=== PATIENT | female | born 1960 | race Caucasian/White ===

== ENCOUNTER 2019-04-30 09:09 | Emergency (ER) | payer MEDICARE ==
[2019-04-30] MEDS ORDERED: DUONEB 0.5-3 MG/3 ml Neb IH ONE ×2 (09:20→09:30)
[2019-04-30] MEDS ORDERED: Sodium Chloride 0.9% 1000 ML 1,000 ML ONE (09:26)
[2019-04-30] MEDS ORDERED: Sodium Chloride 0.9% 1000 ML 1,000 ML IV SCH (09:30)
--- NOTE | 2019-04-30 09:54 | ERPHSYRPT ---
- History of Present Illness Time Seen by Provider: 04/30/19 09:52 Source: patient Exam Limitations: no limitations Patient Subjective Stated Complaint: increasing sob over the past three days. hx smoking for "years" at 1/2 ppd. also had fever at home and took tylenol this am. increased coughing. Triage Nursing Assessment: to room per w/c. skin w/d, color normal, resp labored, shallow. breath sounds diminished throughout. occasional dry cough noted. oxygen on patient at 2L. Physician History: 58 years old female came to ER with increasing sob over the past three days. hx smoking for "years" at 1/2 ppd. also had fever at home and took tylenol this am. increased coughing. Timing/Duration: day(s) (3-4 days) Activities at Onset: activity Severity of Dyspnea-Max: moderate Severity of Dyspnea-Current: moderate Possible Cause: frequent episodes Modifying Factors: Improves With: activity Associated Symptoms: fever International travel in last 2 weeks: No Allergies/Adverse Reactions: morphine Allergy (Verified 04/30/19 09:25) Penicillins Allergy (Verified 04/30/19 09:25) Home Medications: Albuterol Common Canister [Proventil Common Canister] 2 puffs IH UD [History] Budesonide/Formoterol Fumarate [Symbicort 80-4.5 Mcg Inhaler] 1 puff IH DAILY [History] Levothyroxine Sodium 50 Mcg [Synthroid 50 Mcg] 50 mcg PO DAILY 04/30/19 [ History] Pregabalin 200 mg PO BID 04/30/19 [History] Tizanidine HCl 4 mg PO UD 04/30/19 [History] Tramadol HCl 50 mg [Ultram 50 mg] 50 mg PO UD 04/30/19 [History] Hx Tetanus, Diphtheria Vaccination/Date Given: No Hx Influenza Vaccination/Date Given: No Hx Pneumococcal Vaccination/Date Given: No - Review of Systems Constitutional: Fever, Chills, Fatigue, Weakness Eyes: No Symptoms Ears, Nose, & Throat: No Symptoms Respiratory: Cough, Dyspnea, Dyspnea on Exertion (HARRELL), Wheezing Cardiac: No Chest Pain, No Edema, No Syncope Abdominal/Gastrointestinal: No Abdominal Pain, No Nausea, No Vomiting, No Diarrhea Genitourinary Symptoms: No Dysuria Musculoskeletal: No Back Pain, No Neck Pain Skin: No Rash Neurological: No Dizziness, No Focal Weakness, No Sensory Changes Psychological: No Symptoms Endocrine: No Symptoms All Other Systems: Reviewed and Negative - Past Medical History Pertinent Past Medical History: Yes Neurological History: Peripheral Neuropathy Cardiac History: No Pertinent History Respiratory History: COPD Endocrine Medical History: Hypothyroidism Musculoskeletal History: Osteoarthritis Other Medical History: BILATERAL HIP REPLACEMENTS AT AGE 45 (SIX MONTH APART). BACK SURGERY "SCRAPED ARTHRITIS" DUE TO PROBLEMS WITH BOWEL/BLADDER CONTROL APPROXIMATELY 2010 - Past Surgical History Past Surgical History: Yes Musculoskeletal: Orthopedic Surgery - Social History Smoking Status: Current every day smoker How long have you smoked: YEARS Exposure to second hand smoke: Yes Drug Use: marijuana Patient Lives Alone: No - Nursing Vital Signs Nursing Vital Signs: Initial Vital Signs Temperature 97.8 F 04/30/19 09:10 Pulse Rate 90 04/30/19 09:10 Respiratory Rate 26 H 04/30/19 09:10 Blood Pressure 158/93 04/30/19 09:10 O2 Sat by Pulse Oximetry 89 L 04/30/19 09:10 Pain Scale Pain Intensity 0 - Physical Exam General Appearance: moderate distress, alert, lethargy Eye Exam: PERRL/EOMI Neck Exam: normal inspection, supple Respiratory Exam: diminished breath sounds, wheezing Cardiovascular/Chest Exam: normal heart sounds, regular rate/rhythm Abdominal/Gastrointestinal Exam: soft, No tenderness, No distention, No mass Extremity Exam: non-tender, normal range of motion, normal inspection, no calf tenderness, no pedal edema Neurologic Exam: alert, oriented x 3, cooperative, leadership recruiter II-XII nml as tested, sensation nml, No motor deficits Skin Exam: normal color, warm, No dry SpO2 Interpretation: borderline oxygenation SpO2: 89 O2 Delivery: Room Air - Course Nursing assessment & vital signs reviewed: Yes - Radiology Exams Chest X-ray Interpretation: Reviewed by me, Infiltrates (right lower lobe) Ordered Tests: Active Orders 24 hr Category Date Time Status CO2 Monitoring STAT Care 04/30/19 09:20 Active Associate Professor Of Biology STAT Care 04/30/19 09:21 Active EKG-ER Only STAT Care 04/30/19 09:20 Active IV Insertion STAT Care 04/30/19 09:20 Active Oxygen-ED Only Nasal Cannula 3 lpm Care 04/30/19 09:20 Active CHEST 1 VIEW (PORTABLE) Stat Exams 04/30/19 09:35 Taken BLOOD CULTURE Stat Lab 04/30/19 09:48 Received CBC W DIFF Stat Lab 04/30/19 09:20 Completed CMP Stat Lab 04/30/19 09:20 Completed D-DIMER QUANTITATION Stat Lab 04/30/19 09:20 Completed Lactic Acid Stat Lab 04/30/19 09:45 Completed MAGNESIUM Stat Lab 04/30/19 09:20 Completed NT PRO BNP Stat Lab 04/30/19 09:20 Completed TROPONIN Q3H Lab 04/30/19 09:30 Completed TROPONIN Q3H Lab 04/30/19 12:30 Ordered TROPONIN Q3H Lab 04/30/19 15:30 Ordered TROPONIN Q3H Lab 04/30/19 18:30 Ordered TROPONIN Q3H Lab 04/30/19 21:30 Ordered UA W/RFX UR CULTURE Stat Lab 04/30/19 09:20 Uncollected Peak Expiratory Flow Rate DAILY RT 04/30/19 07:00 Active Respiratory Therapy Assessment DAILY RT 05/01/19 07:00 Active Medication Summary Generic Name Dose Route Start Last Admin Trade Name Freq PRN Reason Stop Dose Admin Sodium Chloride 1,000 mls @ 50 mls/hr 04/30/19 09:30 04/30/19 09:27 Sodium Chloride 0.9% 1000 Ml IV 05/30/19 09:29 50 mls/hr .Q20H FELIPA Administration Discontinued Medications Generic Name Dose Route Start Last Admin Trade Name Freq PRN Reason Stop Dose Admin Albuterol/Ipratropium 3 ml 04/30/19 09:20 04/30/19 09:33 Duoneb 0.5-3 Mg/3 Ml Neb IH 04/30/19 09:21 3 ml STAT ONE Administration Albuterol/Ipratropium Confirm 04/30/19 09:30 Duoneb 0.5-3 Mg/3 Ml Neb Administered 04/30/19 09:31 Dose 3 ml IH .STK-MED ONE Levofloxacin/Dextrose 500 mg in 100 mls @ 100 mls/hr 04/30/19 10:50 04/30/19 10:57 Levofloxacin 500mg/100ml D5w IV 04/30/19 11:49 100 ml/hr STAT STA 100 mls/hr Administration Levofloxacin/Dextrose Confirm 04/30/19 10:55 Levofloxacin 500mg/100ml D5w Administered 04/30/19 10:56 Dose 500 mg in 100 mls @ ud IV .STK-MED ONE Nicotine 21 mg 04/30/19 11:23 04/30/19 11:35 Nicoderm Cq 21 Mg TOP 04/30/19 11:24 21 mg STAT ONE Administration Lab/Rad Data: Laboratory Result Diagrams 04/30/19 09:20 04/30/19 09:20 Laboratory Results 04/30/19 04/30/19 04/30/19 Range/Units 09:50 09:45 09:30 WBC (4.0-10.5) K/mm3 RBC (4.1-5.4) M/mm3 Hgb (12.0-16.0) gm/dl Hct (35-47) % MCV (78-100) fl MCH (26-32) pg MCHC (32-36) g/dl RDW (11.5-14.0) % Plt Count (150-450) K/mm3 MPV (6-9.5) fl Gran % (36.0-66.0) % Eos # (Auto) (0-0.5) Absolute Lymphs (auto) (1.0-4.6) Absolute Monos (auto) (0.0-1.3) Lymphocytes % (24.0-44.0) % Monocytes % (0.0-12.0) % Eosinophils % (0.00-5.0) % Basophils % (0.0-0.4) % Absolute Granulocytes (1.4-6.9) Basophils # (0-0.4) D-Dimer (215-500) ng/mL Sodium (137-145) mmol/L Potassium (3.5-5.1) mmol/L Chloride (98-107) mmol/L Carbon Dioxide (22-30) mmol/L Anion Gap (5-15) MEQ/L BUN (7-17) mg/dL Creatinine (0.52-1.04) mg/dL Estimated GFR ML/MIN Glucose (74-106) mg/dL Lactic Acid 1.0 (0.4-2.0) Calcium (8.4-10.2) mg/dL Magnesium (1.6-2.3) mg/dL Total Bilirubin (0.2-1.3) mg/dL AST (14-36) U/L ALT (0-35) U/L Alkaline Phosphatase (38-126) U/L Troponin I < 0.012 (0.000-0.034) ng/mL NT-Pro-B Natriuret Pep (0-900) pg/mL Serum Total Protein (6.3-8.2) g/dL Albumin (3.5-5.0) g/dL Influenza Type A Ag NEGATIVE (NEGATIVE) Influenza Type B Ag NEGATIVE (NEGATIVE) RSV (PCR) NEGATIVE (Negative) 04/30/19 04/30/19 04/30/19 Range/Units 09:20 09:20 09:20 WBC 6.6 (4.0-10.5) K/mm3 RBC 5.20 (4.1-5.4) M/mm3 Hgb 16.9 H (12.0-16.0) gm/dl Hct 51.0 H (35-47) % MCV 98.1 (78-100) fl MCH 32.5 H (26-32) pg MCHC 33.1 (32-36) g/dl RDW 13.2 (11.5-14.0) % Plt Count 141 L (150-450) K/mm3 MPV 11.6 H (6-9.5) fl Gran % 53.5 (36.0-66.0) % Eos # (Auto) 0.04 (0-0.5) Absolute Lymphs (auto) 1.84 (1.0-4.6) Absolute Monos (auto) 1.17 (0.0-1.3) Lymphocytes % 27.9 (24.0-44.0) % Monocytes % 17.7 H (0.0-12.0) % Eosinophils % 0.6 (0.00-5.0) % Basophils % 0.3 (0.0-0.4) % Absolute Granulocytes 3.53 (1.4-6.9) Basophils # 0.02 (0-0.4) D-Dimer 650 H* (215-500) ng/mL Sodium 145 (137-145) mmol/L Potassium 4.1 (3.5-5.1) mmol/L Chloride 103 (98-107) mmol/L Carbon Dioxide 30 (22-30) mmol/L Anion Gap 16.4 H (5-15) MEQ/L BUN 11 (7-17) mg/dL Creatinine 0.53 (0.52-1.04) mg/dL Estimated GFR > 60.0 ML/MIN Glucose 124 H (74-106) mg/dL Lactic Acid (0.4-2.0) Calcium 9.8 (8.4-10.2) mg/dL Magnesium 2.1 (1.6-2.3) mg/dL Total Bilirubin 0.40 (0.2-1.3) mg/dL AST 45 H (14-36) U/L ALT 14 (0-35) U/L Alkaline Phosphatase 88 (38-126) U/L Troponin I (0.000-0.034) ng/mL NT-Pro-B Natriuret Pep 67.8 (0-900) pg/mL Serum Total Protein 8.6 H (6.3-8.2) g/dL Albumin 4.7 (3.5-5.0) g/dL Influenza Type A Ag (NEGATIVE) Influenza Type B Ag (NEGATIVE) RSV (PCR) (Negative) - Progress Progress: improved Air Movement: good Blood Culture(s) Obtained: Yes Antibiotics given: Yes Counseled pt/family regarding: lab results, diagnosis, need for follow-up, rad results - Departure Departure Disposition: Home Clinical Impression: Pneumonia of right lower lobe due to infectious organism, Tobacco abuse counseling, Tobacco dependence, Chronic bronchitis with acute exacerbation Condition: Stable Critical Care Time: Yes Critical Care Time(excluding separately billable procedures): Critical 30-74 mins Referrals: DAYSI KINSEY MD [Primary Care Provider] - Instructions: Pneumonia, Adult (DC), Exacerbation of COPD (DC), Chronic Obstructive Pulmonary Disease, Shortness of Breath (Dyspnea) (DC), Quitting Smoking for Older Adults, Smoking: Not Just Harmful to Your Lungs and Heart, Quitting Smoking, Drugs to Help You Stop Using Tobacco Additional Instructions: Discharge/Care Plan LINDY FERRARO was seen on 04/30/19 in the Emergency Room. The patient was counseled regarding Diagnosis,Lab results, Imaging studies, need for follow up and when to return to the Emergency Room. Prescriptions given: Discharge Note I have spoken with the patient and/or caregivers. I have explained the patient' s condition, diagnosis and treatment plan based on the information available to me at this time. I have answered the patient's and/or caregiver's questions and addressed any concerns. The patient and/or caregivers have as good understanding of the patient's diagnosis, condition and treatment plan as can be expected at this point. The vital signs have been stable. The patient's condition is stable and appropriate for discharge from the emergency department. The patient will pursue further outpatient evaluation with the primary care physician or other designated or consulting physician as outlined in the discharge instructions. The patient and/or caregivers are agreeable to this plan of care and follow-up instructions have been explained in detail. The patient and/or caregivers have received these instruction. The patient/and or caregivers are aware that any significant change in condition or worsening of symptoms should prompt an immediate return to this or the closest emergency department or call 911. Prescriptions: Levofloxacin [Levaquin 500 MG Tablet] 500 mg PO QAM #7 tablet
[2019-04-30 10:05] LABS: Absolute Neutrophil Ct (ANC) 3.53 (1.4-6.9); BASOPHIL % 0.3 % (0.0-0.4); Basophil (Absolute #) 0.02 (0-0.4); Eosinophil % 0.6 % (0.00-5.0); Eosinophil (Absolute #) 0.04 (0-0.5); Hemoglobin 16.9 gm/dl (12.0-16.0); Lymphocyte (Absolute #) 1.84 (1.0-4.6); Lymphocytes % 27.9 % (24.0-44.0); Mean Cell Volume 98.1 fl (78-100); Mean Corpuscular Hemoglobin 32.5 pg (26-32); Mean Corpuscular Hgb Concent. 33.1 g/dl (32-36); Mean Platelet Volume 11.6 fl (6-9.5); Monocyte (Absolute #) 1.17 (0.0-1.3); Monocytes % 17.7 % (0.0-12.0); Neutrophil % 53.5 % (36.0-66.0); Platelet Count 141 K/mm3 (150-450); Red Cell Distribution Width 13.2 % (11.5-14.0); White Blood Count 6.6 K/mm3 (4.0-10.5)
[2019-04-30 10:18] LABS: ALBUMIN 4.7 g/dL (3.5-5.0); ALKALINE PHOSPHATASE 88 U/L (38-126); ANION GAP 16.4 MEQ/L (5-15); BLOOD UREA NITROGEN 11 mg/dL (7-17); CHLORIDE 103 mmol/L (98-107); Calcium 9.8 mg/dL (8.4-10.2); Carbon Dioxide 30 mmol/L (22-30); Creatinine 1 0.53 mg/dL (0.52-1.04); Glucose 124 mg/dL (74-106); MAGNESIUM 2.1 mg/dL (1.6-2.3); NT PRO BNP 67.8 pg/mL (0-900); Potassium 4.1 mmol/L (3.5-5.1); SGOT/AST 45 U/L (14-36); SGPT/ALT 14 U/L (0-35); SODIUM 145 mmol/L (137-145); Total Protein 8.6 g/dL (6.3-8.2)
[2019-04-30] MEDS ORDERED: Levofloxacin 500MG/100ML D5W 500 MG/100 ML BAG IV STA (10:50)
[2019-04-30 10:53] LABS: INFLUENZA A NEGATIVE (NEGATIVE); INFLUENZA B NEGATIVE (NEGATIVE); RESPIRATORY SYNCTIAL VIRUS NEGATIVE (Negative)
[2019-04-30] MEDS ORDERED: Levofloxacin 500MG/100ML D5W 500 MG/100 ML BAG IV ONE (10:55)
[2019-04-30] MEDS ORDERED: Nicoderm CQ 21 MG TOP ONE (11:23)
[2019-04-30 12:18] VITALS: BP 123/97; PULSE 90; O2SAT 93
[2019-04-30 13:00] LABS: Appearance SLIGHTLY CLOUDY (CLEAR); Bilirubin NEGATIVE (NEGATIVE); Blood NEGATIVE Ery/ul (0-5); Glucose NEGATIVE (NEGATIVE); Ketones TRACE (NEGATIVE); Leukocyte Esterase NEGATIVE (NEGATIVE); Mucus SLIGHT /HPF (NEGATIVE); Nitrite NEGATIVE (NEGATIVE); Protein,Urine Dip 30 (Negative); Specific Gravity 1.018 (1.005-1.025); Urobilinogen NEGATIVE mg/dL (0-1); WBC 0-2 /HPF (0-5)
--- NOTE | 2019-04-30 20:42 | XRAY ---
Indication: Fever, cough, and short of breath. Comparison: None Portable chest hyperinflated with subtle right base infiltrate/atelectasis. Remaining heart and lungs unremarkable. Bony thorax intact with mild degenerative changes. Impression: Right base infiltrate/atelectasis. Correlate clinically.
== END 2019-04-30 12:19 | disposition home or self-care (01) ==
LOC: ED 09:09
DX: J18.1 Lobar pneumonia, unspecified organism (principal); F17.200 Nicotine dependence, unspecified, uncomplicated; J44.1 Chronic obstructive pulmonary disease with (acute) exacerbation; G62.9 Polyneuropathy, unspecified; E03.9 Hypothyroidism, unspecified; M19.90 Unspecified osteoarthritis, unspecified site
CPT/HCPCS: 36000; 36415; 71045; 80053; 81001; 83605; 83735; 83880; 84484; 85025; 85379; 87040; 87631; 93005; 93041; 94150; 94640; 96360; 96361; 96365; 99285; 99291; J1956; A9270-GY

== ENCOUNTER 2019-05-05 21:12 | Inpatient (IN) | payer MEDICARE ==
[2019-05-05] MEDS ORDERED: DUONEB 0.5-3 MG/3 ml Neb IH ONE ×2 (21:41→22:01)
[2019-05-05] MEDS ORDERED: Rocephin 1000 MG INJ IM ONE (21:44)
[2019-05-05] MEDS ORDERED: PULMICORT 0.5 MG/2 ML RESPULES IH ONE ×2 (21:44→21:58)
[2019-05-05] MEDS ORDERED: Rocephin 1000 MG INJ ONE (21:48)
[2019-05-05] MEDS ORDERED: XYLOCAINE 1% HCL 20 ML MDV ONE (21:49)
--- NOTE | 2019-05-05 21:53 | ERPHSYRPT ---
- History of Present Illness Time Seen by Provider: 05/05/19 21:49 Source: patient, family Exam Limitations: no limitations Patient Subjective Stated Complaint: pt states, "ever since taking the Levaquin antibiotic last Wednesday, I'm having terrible pain down my legs, calves and into my heels". Triage Nursing Assessment: pt ambulated to rm 8, alert and oriented x4, cooperative, daughter at bedside. Pt c/o bilat posterior leg pain after starting Levaquin for pneumonia. Lung field diminished throughout with exp wheezes to ant left upper lobe. Heart tones reg, abd soft with active bs x4 quad, nontender. Physician History: pt states, "ever since taking the Levaquin antibiotic last Wednesday, I'm having terrible pain down my legs, calves and into my heels". patient was diagnosed with pneumonia last wednesday was seen in ER and started levaquin. Since last 3 days she has both leg calf and tendon pain. Timing/Duration: day(s) Allergies/Adverse Reactions: levofloxacin [From Levaquin] Allergy (Verified 05/05/19 21:48) morphine Allergy (Verified 04/30/19 09:25) Penicillins Allergy (Verified 04/30/19 09:25) varenicline [From Chantix] Adverse Reaction (Verified 05/05/19 21:48) Home Medications: Albuterol Common Canister [Proventil Common Canister] 2 puffs IH UD PRN [History] Budesonide/Formoterol Fumarate [Symbicort 80-4.5 Mcg Inhaler] 1 puff IH DAILY PRN 04/30/19 [History] Levothyroxine Sodium 50 Mcg [Synthroid 50 Mcg] 50 mcg PO DAILY 04/30/19 [ History] Pregabalin 200 mg PO BID 04/30/19 [History] Tizanidine HCl 4 mg PO [id number] PRN 04/30/19 [History] Tramadol HCl 50 mg [Ultram 50 mg] 50 mg PO BID 04/30/19 [History] Hx Tetanus, Diphtheria Vaccination/Date Given: Yes Hx Influenza Vaccination/Date Given: No Hx Pneumococcal Vaccination/Date Given: No Immunizations Up to Date: Yes - Review of Systems Constitutional: No Fever, No Chills Eyes: No Symptoms Ears, Nose, & Throat: No Symptoms Respiratory: No Cough, No Dyspnea Cardiac: No Chest Pain, No Edema, No Syncope Abdominal/Gastrointestinal: No Abdominal Pain, No Nausea, No Vomiting, No Diarrhea Genitourinary Symptoms: No Dysuria Musculoskeletal: Arthralgias, Joint Pain, Myalgias, No Back Pain, No Neck Pain, No Deformity Skin: No Rash Neurological: No Dizziness, No Focal Weakness, No Sensory Changes Psychological: No Symptoms Endocrine: No Symptoms All Other Systems: Reviewed and Negative - Past Medical History Pertinent Past Medical History: Yes Neurological History: Peripheral Neuropathy ENT History: No Pertinent History Cardiac History: No Pertinent History Respiratory History: COPD Endocrine Medical History: Hypothyroidism Musculoskeletal History: Osteoarthritis GI Medical History: No Pertinent History History: No Pertinent History Psycho-Social History: Depression Female Reproductive Disorders: No Pertinent History Other Medical History: BILATERAL HIP REPLACEMENTS AT AGE 45 (SIX MONTH APART). BACK SURGERY "SCRAPED ARTHRITIS" DUE TO PROBLEMS WITH BOWEL/BLADDER CONTROL APPROXIMATELY 2010 - Past Surgical History Past Surgical History: Yes Neuro Surgical History: No Pertinent History Cardiac: No Pertinent History Respiratory: No Pertinent History Gastrointestinal: No Pertinent History Genitourinary: No Pertinent History Musculoskeletal: Orthopedic Surgery Female Surgical History: No Pertinent History - Social History Smoking Status: Current every day smoker How long have you smoked: 40 yrs Exposure to second hand smoke: Yes Drug Use: marijuana Patient Lives Alone: No - Female History Hx Now: No - Nursing Vital Signs Nursing Vital Signs: Initial Vital Signs Temperature 98.6 F 05/05/19 21:31 Pulse Rate 82 05/05/19 21:31 Respiratory Rate 17 05/05/19 21:31 Blood Pressure 101/59 05/05/19 21:31 O2 Sat by Pulse Oximetry 85 L 05/05/19 21:31 Pain Scale Pain Intensity 6 - Physical Exam General Appearance: no apparent distress, alert Eye Exam: PERRL/EOMI Neck Exam: normal inspection, supple Respiratory Exam: diminished breath sounds, wheezing Cardiovascular/Chest Exam: normal heart sounds, regular rate/rhythm Abdominal/Gastrointestinal Exam: soft, No tenderness, No distention, No mass Extremity Exam: non-tender, normal range of motion, normal inspection, no calf tenderness, no pedal edema Neurologic Exam: alert, oriented x 3, cooperative, 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, sensation nml, No motor deficits Skin Exam: normal color, warm, No dry SpO2 Interpretation: borderline oxygenation SpO2: 91 O2 Delivery: Room Air - Course Nursing assessment & vital signs reviewed: Yes Ordered Tests: Active Orders 24 hr Category Date Time Status Peak Expiratory Flow Rate ONCE RT 05/05/19 22:08 Active Respiratory Therapy Assessment DAILY RT 05/05/19 22:08 Active Medication Summary Discontinued Medications Generic Name Dose Route Start Last Admin Trade Name Freq PRN Reason Stop Dose Admin Albuterol/Ipratropium 3 ml 05/05/19 21:41 05/05/19 22:02 Duoneb 0.5-3 Mg/3 Ml Neb IH 05/05/19 21:42 3 ml STAT ONE Administration Albuterol/Ipratropium Confirm 05/05/19 22:01 Duoneb 0.5-3 Mg/3 Ml Neb Administered 05/05/19 22:02 Dose 3 ml IH .STK-MED ONE Budesonide 0.5 mg 05/05/19 21:44 05/05/19 22:03 Pulmicort 0.5 Mg/2 Ml Respules IH 05/05/19 21:45 0.5 mg STAT ONE Administration Ceftriaxone Sodium 1,000 mg 05/05/19 21:44 05/05/19 21:59 Rocephin 1000 Mg Inj IM 05/05/19 21:45 1,000 mg STAT ONE Administration Ceftriaxone Sodium Confirm 05/05/19 21:48 Rocephin 1000 Mg Inj Administered 05/05/19 21:49 Dose 1,000 mg .ROUTE .STK-MED ONE Lidocaine HCl Confirm 05/05/19 21:49 Xylocaine 1% Hcl 20 Ml Mdv Administered 05/05/19 21:50 Dose 3 ml .ROUTE .STK-MED ONE - Progress Progress: improved Air Movement: good Blood Culture(s) Obtained: No Antibiotics given: Yes Discussed with DrCarolyne: Pradeep Will see patient in: hospital (observation) Counseled pt/family regarding: lab results, diagnosis, need for follow-up, rad results - Departure Departure Disposition: Observation Clinical Impression: Pneumonia of right lower lobe due to infectious organism, Drug side effects Condition: Fair Critical Care Time: Yes Critical Care Time(excluding separately billable procedures): Critical 30-74 mins Referrals: DAYSI KINSEY MD [Primary Care Provider] - Instructions: Pneumonia, Adult (DC), Adverse Drug Reactions, Adult (DC) Additional Instructions: Discharge/Care Plan LINDY FERRARO was seen on 05/05/19 in the Emergency Room. The patient was counseled regarding Diagnosis,Lab results, Imaging studies, need for follow up and when to return to the Emergency Room. Prescriptions given: Discharge Note I have spoken with the patient and/or caregivers. I have explained the patient' s condition, diagnosis and treatment plan based on the information available to me at this time. I have answered the patient's and/or caregiver's questions and addressed any concerns. The patient and/or caregivers have as good understanding of the patient's diagnosis, condition and treatment plan as can be expected at this point. The vital signs have been stable. The patient's condition is stable and appropriate for discharge from the emergency department. The patient will pursue further outpatient evaluation with the primary care physician or other designated or consulting physician as outlined in the discharge instructions. The patient and/or caregivers are agreeable to this plan of care and follow-up instructions have been explained in detail. The patient and/or caregivers have received these instruction. The patient/and or caregivers are aware that any significant change in condition or worsening of symptoms should prompt an immediate return to this or the closest emergency department or call 911. LINDY FERRARO was seen on 05/05/19 n the Emergency Room. At that time you were treated for an emergent condition, during your visit Laboratory, Radiology and/or other procedures may have been ordered. It is very important that you follow-up with your Primary Care Physician DAYSI KINSEY within the next 24-48 hours to review your Emergency Room visit and the final results of testing that was ordered. Some test results such as Urine Cultures, Blood Cultures, and other cultures if ordered will not be finalized for 24-48 hours. If you do not have a Primary Care Provider please call the medical records department at [phone] ext [phone] to obtain a copy of your results or you may sign into our patient portal to obtain these results by visiting us @ [email or web address] and completing the following steps: 1. Click on the Patient Portal link 2. Click the Patient Self Enrollment Link to complete the enrollment form and entering your 3. Once the enrollment form is completed you will receive an email with a temporary ID and password at the email address you provided. 4. Next choose a user name and password. Your user name must be at least 4 characters long and your password must be at least 4 characters long. 5. Choose a security question from the list and provide your answer to the question. If you already have signed into the Health Portal you may access your Health Care Information 08/02 by the following steps: 1. Login to our website @ [email or web address] 2. Enter your original user name and password. FAQS The [facility] Health Portal is an online tool that contains your Lab Results, Radiology Reports, Visit History, Discharge Instructions and Health Summary Lab and Radiology Results will not be available for 72 hours on the portal. The Portal is a secure site, passwords are encryted and URLs are re-written so they cannot be copied and pasted. You and authorized family members are the only ones who can access your Portal. Also there is a timeout feature that protects your information if you leave the Portal page open. If you have technical difficulty please use the Contact Us link on the page this will allow you to submit any questions you have regarding the Portal or you may contact the Medical Record Department at [phone]. Prescriptions: Ipratropium/Albuterol Sulfate [Combivent Inhaler] 15 gm IH QID #1 [email or web address] Cephalexin Mh 500 mg [Keflex 500 mg] 500 mg PO Q6H #40 capsule
[2019-05-05] MEDS ORDERED: Sodium Chloride 0.9% 1000 ML 1,000 ML ONE (23:00)
[2019-05-05] MEDS ORDERED: Sodium Chloride 0.9% 1000 ML 1,000 ML IV STA (23:02)
[2019-05-05 23:03] LABS: Hematocrit 46.3 % (35-47); Mean Cell Volume 100.2 fl (78-100); Mean Corpuscular Hemoglobin 32.5 pg (26-32); Mean Corpuscular Hgb Concent. 32.4 g/dl (32-36); Mean Platelet Volume 11.1 fl (6-9.5); Platelet Count 170 K/mm3 (150-450); Red Blood Count 4.62 M/mm3 (4.1-5.4); White Blood Count 5.9 K/mm3 (4.0-10.5)
[2019-05-05 23:15] LABS: ALBUMIN 4.1 g/dL (3.5-5.0); ALKALINE PHOSPHATASE 68 U/L (38-126); ANION GAP 10.8 MEQ/L (5-15); BLOOD UREA NITROGEN 11 mg/dL (7-17); CHLORIDE 97 mmol/L (98-107); Calcium 9.1 mg/dL (8.4-10.2); Carbon Dioxide 38 mmol/L (22-30); Glucose 106 mg/dL (74-106); Potassium 3.8 mmol/L (3.5-5.1); SGOT/AST 31 U/L (14-36); SGPT/ALT 13 U/L (0-35); SODIUM 142 mmol/L (137-145); Total Protein 7.4 g/dL (6.3-8.2)
[2019-05-06 00:11] LABS: ATYPICAL LYMPHS 9 %; BAND 5 % (0.0-2.0); Lymphocytes 25 % (24-44); Monocyte 7 % (0.0-12.0); Neutrophils 54 % (36.0-66.0); Platelet Estimate NORMAL (NORMAL); Total Cells Counted 100
[2019-05-06] MEDS: Sodium Chloride 0.9% 1000 ML 1,000 ML IV SCH ×3 (00:34→23:58)
[2019-05-06] MEDS ORDERED: NORCO 7.5/325 MG TAB PO PRN (00:42)
[2019-05-06] MEDS: Ambien 5 MG Tablet PO PRN ×2 (00:49→21:56)
[2019-05-06] MEDS: DUONEB 0.5-3 MG/3 ml Neb IH SCH ×4 (01:27→19:42)
[2019-05-06 05:43] LABS: Hematocrit 40.7 % (35-47); Hemoglobin 13.3 gm/dl (12.0-16.0); Mean Cell Volume 101.8 fl (78-100); Mean Corpuscular Hgb Concent. 32.7 g/dl (32-36); Mean Platelet Volume 11.1 fl (6-9.5); Platelet Count 144 K/mm3 (150-450); Red Cell Distribution Width 12.9 % (11.5-14.0); White Blood Count 4.6 K/mm3 (4.0-10.5)
[2019-05-06 05:46] LABS: Mean Corpuscular Hemoglobin 33.2 pg (26-32)
[2019-05-06 06:07] LABS: ALBUMIN 3.4 g/dL (3.5-5.0); ALKALINE PHOSPHATASE 73 U/L (38-126); ANION GAP 8.1 MEQ/L (5-15); BLOOD UREA NITROGEN 10 mg/dL (7-17); CHLORIDE 103 mmol/L (98-107); Calcium 8.2 mg/dL (8.4-10.2); Carbon Dioxide 33 mmol/L (22-30); Creatinine 1 0.57 mg/dL (0.52-1.04); Glucose 100 mg/dL (74-106); Potassium 3.5 mmol/L (3.5-5.1); SGOT/AST 26 U/L (14-36); SGPT/ALT 11 U/L (0-35); SODIUM 141 mmol/L (137-145); Total Protein 6.3 g/dL (6.3-8.2)
[2019-05-06] MEDS: Advair Hfa 115/21 Common canister IH SCH ×2 (07:04→19:58)
[2019-05-06 09:20] LABS: ANISOCYTOSIS 1+; ATYPICAL LYMPHS 2 %; BAND 4 % (0.0-2.0); Eosinophil 1 % (0.00-3.0); Lymphocytes 44 % (24-44); Monocyte 13 % (0.0-12.0); Neutrophils 36 % (36.0-66.0); Total Cells Counted 100
[2019-05-06 09:21] LABS: Platelet Estimate NORMAL (NORMAL); Toxic Granulation 1+
[2019-05-06] MEDS ORDERED: Zithromax 500 MG/ 250 ML NaCl Premix 500 MG/250 ML IVPB IV SCH (10:00)
--- NOTE | 2019-05-06 10:03 | PCM.HP ---
History of Present Illness - Chief Complaint Chief Complaint: Pneumonia History of Present Illness: is a 58 year old female who was seen in the ER and diagnosed with pneumonia on 04/30, she was placed on levaquin but continued to worsen at home, she describes a cough productive of white sputum with shortness of breath. She is a longtime smoker, no dx pulmonary conditions. follows with Dr Mayo so has no local physician. - Review of Systems Constitutional: No Fever, No Chills Ears, Nose, & Throat: No Symptoms Respiratory: Cough, Short Of Breath, Wheezing Cardiac: No Chest Pain, No Edema, No Syncope Abdominal/Gastrointestinal: No Abdominal Pain, No Nausea, No Vomiting, No Diarrhea Skin: No Rash Neurological: No Dizziness, No Focal Weakness, No Sensory Changes Psychological: No Symptoms All Other Systems: Reviewed and Negative Medications & Allergies Home Medications: Home Medication List Albuterol Common Canister [Proventil Common Canister] 2 puffs IH UD PRN [History Confirmed 05/05/19] Budesonide/Formoterol Fumarate [Symbicort 80-4.5 Mcg Inhaler] 1 puff IH DAILY PRN 04/30/19 [History Confirmed 05/05/19] Levothyroxine Sodium 50 Mcg [Synthroid 50 Mcg] 50 mcg PO DAILY 04/30/19 [ History Confirmed 05/05/19] Pregabalin 200 mg PO BID 04/30/19 [History Confirmed 05/05/19] Tizanidine HCl 4 mg PO [id number] PRN 04/30/19 [History Confirmed 05/05/19] Tramadol HCl 50 mg [Ultram 50 mg] 50 mg PO BID 04/30/19 [History Confirmed 05/05/19] Cephalexin Mh 500 mg [Keflex 500 mg] 500 mg PO Q6H #40 capsule 05/05/19 [Rx] Hydrocodone Bit/Acetaminophen [[place] 7.5-325 Tablet] 1 each PO Q6HPRN PRN [History Confirmed 05/05/19] Ipratropium/Albuterol Sulfate [Combivent Inhaler] 15 gm IH QID #1 aer.[email or web address] [Rx] Allergies/Adverse Reactions: Allergies Allergy/AdvReac Type Severity Reaction Status Date / Time levofloxacin [From Levaquin] Allergy Verified 05/05/19 21:48 morphine Allergy Verified 04/30/19 09:25 Penicillins Allergy Verified 04/30/19 09:25 varenicline [From Chantix] AdvReac Verified 05/05/19 21:48 - Past Medical History Past Medical History: Yes Neurological History: Peripheral Neuropathy ENT History: No Pertinent History Cardiac History: No Pertinent History Respiratory History: COPD, Pneumonia Endocrine Medical History: Hypothyroidism Musculoskelatal History: Osteoarthritis GI Medical History: No Pertinent History, Ulcer History: No Pertinent History Pyscho-Social History: Depression Reproductive Disorders: No Pertinent History Comment: BILATERAL HIP REPLACEMENTS AT AGE 45 (SIX MONTH APART). BACK SURGERY "SCRAPED ARTHRITIS" DUE TO PROBLEMS WITH BOWEL/BLADDER CONTROL APPROXIMATELY 2010 - Female History Are you now?: No - Past Surgical History Past Surgical History: Yes Neuro Surgical History: No Pertinent History Cardiac History: No Pertinent History Respiratory Surgery: No Pertinent History GI Surgical History: No Pertinent History Genitourinary Surgical Hx: No Pertinent History Musculskeletal Surgical Hx: Orthopedic Surgery Female Surgical History: No Pertinent History Other Surgical History: BILATERAL HIP REPLACEMENTS AT AGE 45 (SIX MONTH APART). BACK SURGERY "SCRAPED ARTHRITIS" DUE TO PROBLEMS WITH BOWEL/BLADDER CONTROL APPROXIMATELY 2010 - Social History Smoking Status: Current every day smoker How long have you smoked: 40 years Exposure to second hand smoke: Yes Alcohol: None Drug Use: marijuana - Physical Exam Vital Signs: Vital Signs - 24 hr Temp Pulse Resp BP Pulse Ox 05/06/19 07:17 97.8 F 68 18 127/64 92 L 05/06/19 07:08 68 16 92 L 05/06/19 04:00 100.0 F 70 18 124/58 92 L 05/06/19 01:32 82 90 L 05/06/19 00:00 98.9 F 80 20 114/63 96 05/05/19 23:29 98.9 F 80 20 114/63 96 05/05/19 23:11 74 18 104/64 96 05/05/19 23:00 76 20 80/54 91 L 05/05/19 22:45 91 L 05/05/19 22:41 72 22 88/54 89 L 05/05/19 22:09 73 20 94 L 05/05/19 21:37 91 L 05/05/19 21:31 98.6 F 82 17 101/59 85 L Oxygen-Last 24 hours O2 Percentage 5 Liters = 40% O2 Percentage 4 Liters = 36% O2 Percentage 4 Liters = 36% O2 Percentage 2 Liters = 28% O2 Percentage 3 Liters = 32% O2 Percentage 2 Liters = 28% Oxygen Flowrate (L/min)-RT 5 Oxygen Flowrate (L/min)-RT 4 Oxygen Flowrate (L/min)-RT 4 General Appearance: no apparent distress Neurologic Exam: alert, oriented x 3, cooperative Eye Exam: PERRL/EOMI, eyes nml inspection Respiratory Exam: prolonged expirations, wheezing, No accessory muscle use Cardiovascular Exam: regular rate/rhythm, normal heart sounds, normal peripheral pulses Gastrointestinal/Abdomen Exam: soft, normal bowel sounds, No tenderness, No mass Extremity Exam: normal inspection, normal range of motion, pelvis stable Skin Exam: normal color, warm, dry, No rash Results - Labs Lab/Micro Results: Lab Results-Last 24 Hours 05/05/19 05/05/19 05/05/19 Range/Units 22:55 22:59 22:59 WBC 5.9 (4.0-10.5) K/mm3 RBC 4.62 (4.1-5.4) M/mm3 Hgb 15.0 (12.0-16.0) gm/dl Hct 46.3 (35-47) % MCV 100.2 H (78-100) fl MCH 32.5 H (26-32) pg MCHC 32.4 (32-36) g/dl RDW 13.0 (11.5-14.0) % Plt Count 170 (150-450) K/mm3 MPV 11.1 H (6-9.5) fl Segmented Neutrophils 54 (36.0-66.0) % Band Neutrophils 5 H (0.0-2.0) % Lymphocytes (Manual) 25 (24-44) % Monocytes (Manual) 7 (0.0-12.0) % Eosinophils (Manual) (0.00-3.0) % Atypical Lymphocytes 9 % Toxic Granulation Platelet Estimate NORMAL (NORMAL) RBC Morphology NORMAL Anisocytosis Sodium 142 (137-145) mmol/L Potassium 3.8 (3.5-5.1) mmol/L Chloride 97 L (98-107) mmol/L Carbon Dioxide 38 H (22-30) mmol/L Anion Gap 10.8 (5-15) MEQ/L BUN 11 (7-17) mg/dL Creatinine 0.80 (0.52-1.04) mg/dL Estimated GFR > 60.0 ML/MIN Glucose 106 (74-106) mg/dL Lactic Acid 1.3 (0.4-2.0) Calcium 9.1 (8.4-10.2) mg/dL Total Bilirubin 0.20 (0.2-1.3) mg/dL AST 31 (14-36) U/L ALT 13 (0-35) U/L Alkaline Phosphatase 68 (38-126) U/L Troponin I (0.000-0.034) ng/mL Serum Total Protein 7.4 (6.3-8.2) g/dL Albumin 4.1 (3.5-5.0) g/dL 05/05/19 05/06/19 05/06/19 Range/Units 22:59 05:00 05:20 WBC 4.6 (4.0-10.5) K/mm3 RBC 4.00 L (4.1-5.4) M/mm3 Hgb 13.3 (12.0-16.0) gm/dl Hct 40.7 (35-47) % MCV 101.8 H (78-100) fl MCH 33.2 H (26-32) pg MCHC 32.7 (32-36) g/dl RDW 12.9 (11.5-14.0) % Plt Count 144 L (150-450) K/mm3 MPV 11.1 H (6-9.5) fl Segmented Neutrophils 36 (36.0-66.0) % Band Neutrophils 4 H (0.0-2.0) % Lymphocytes (Manual) 44 (24-44) % Monocytes (Manual) 13 H (0.0-12.0) % Eosinophils (Manual) 1 (0.00-3.0) % Atypical Lymphocytes 2 % Toxic Granulation 1+ Platelet Estimate NORMAL (NORMAL) RBC Morphology ABNORMAL Anisocytosis 1+ Sodium 141 (137-145) mmol/L Potassium 3.5 (3.5-5.1) mmol/L Chloride 103 (98-107) mmol/L Carbon Dioxide 33 H (22-30) mmol/L Anion Gap 8.1 (5-15) MEQ/L BUN 10 (7-17) mg/dL Creatinine 0.57 (0.52-1.04) mg/dL Estimated GFR > 60.0 ML/MIN Glucose 100 (74-106) mg/dL Lactic Acid (0.4-2.0) Calcium 8.2 L (8.4-10.2) mg/dL Total Bilirubin 0.10 L (0.2-1.3) mg/dL AST 26 (14-36) U/L ALT 11 (0-35) U/L Alkaline Phosphatase 73 (38-126) U/L Troponin I < 0.012 (0.000-0.034) ng/mL Serum Total Protein 6.3 (6.3-8.2) g/dL Albumin 3.4 L (3.5-5.0) g/dL 05/06/19 05/06/19 Range/Units 05:20 05:30 WBC (4.0-10.5) K/mm3 RBC (4.1-5.4) M/mm3 Hgb (12.0-16.0) gm/dl Hct (35-47) % MCV (78-100) fl MCH (26-32) pg MCHC (32-36) g/dl RDW (11.5-14.0) % Plt Count (150-450) K/mm3 MPV (6-9.5) fl Segmented Neutrophils (36.0-66.0) % Band Neutrophils (0.0-2.0) % Lymphocytes (Manual) (24-44) % Monocytes (Manual) (0.0-12.0) % Eosinophils (Manual) (0.00-3.0) % Atypical Lymphocytes % Toxic Granulation Platelet Estimate (NORMAL) RBC Morphology Anisocytosis Sodium (137-145) mmol/L Potassium (3.5-5.1) mmol/L Chloride (98-107) mmol/L Carbon Dioxide (22-30) mmol/L Anion Gap (5-15) MEQ/L BUN (7-17) mg/dL Creatinine (0.52-1.04) mg/dL Estimated GFR ML/MIN Glucose (74-106) mg/dL Lactic Acid 0.8 (0.4-2.0) Calcium (8.4-10.2) mg/dL Total Bilirubin (0.2-1.3) mg/dL AST (14-36) U/L ALT (0-35) U/L Alkaline Phosphatase (38-126) U/L Troponin I < 0.012 (0.000-0.034) ng/mL Serum Total Protein (6.3-8.2) g/dL Albumin (3.5-5.0) g/dL - Other Procedures and Tests Respiratory Therapy 05/05/19 22:08 Peak Expiratory Flow Rate ONCE Respiratory Therapy Assessment DAILY 05/05/19 23:11 Oxygen Nasal Cannula 3 lpm Assessment/Plan (1) COPD with acute exacerbation Current Visit: Yes Status: Acute Assessment & Plan: continue rocephin/zithromax, will add IV solu medrol. clinical picture definitely points to copd with exacerbation based on exam and longstanding tobacco use history. Code(s): J44.1 - CHRONIC OBSTRUCTIVE PULMONARY DISEASE W (ACUTE) EXACERBATION (2) Pneumonia of right lower lobe due to infectious organism Current Visit: Yes Status: Acute Assessment & Plan: on rocephin/zithromax Code(s): J18.1 - LOBAR PNEUMONIA, UNSPECIFIED ORGANISM (3) Hypoxia Current Visit: Yes Status: Acute Code(s): R09.02 - HYPOXEMIA
[2019-05-06] MEDS ORDERED: Zanaflex 4 MG PO PRN (11:09)
[2019-05-06] MEDS: LYRICA 100MG PO SCH ×2 (11:43→20:52)
[2019-05-06] MEDS: SYNTHROID 50 MCG PO SCH (11:43)
[2019-05-06] MEDS: ENOXAPARIN SODIUM SQ SCH (11:44)
[2019-05-06] MEDS: solu-MEDROL 125 MG IV SCH ×3 (11:45→23:54)
[2019-05-06] MEDS: Pepcid 20 MG VIAL IV SCH ×2 (11:47→20:53)
[2019-05-06] MEDS: DULCOLAX 5 MG PO PRN (17:29)
[2019-05-06] MEDS: Zithromax 500 MG/ 250 ML NaCl Premix 500 MG/250 ML IVPB IV SCH (20:52)
[2019-05-06] MEDS: NICODERM CQ 14 MG TOP SCH ×2 (20:53→23:54)
[2019-05-06] MEDS: ROCEPHIN 1 Gm-D5w 50 ml Bag** 1 G/50 ML IVPB IV SCH (20:54)
--- NOTE | 2019-05-06 21:28 | XRAY ---
Indication: Short of breath. Elevated d-dimer. Multiple contiguous axial images obtained through the chest using 150 cc Isovue 370 contrast total and using PE protocol. Comparison: None There is satisfactory opacification of the pulmonary arteries to include the lobar and segmental branches. No filling defect or pulmonary embolus. Heart is not enlarged. Aorta is normal in course and caliber. A few small matted precarinal lymph nodes. No pathologic mediastinal/hilar lymphadenopathy. Examination of the lung parenchyma demonstrates minimal bilateral upper lobe pulmonary emphysema. Bilateral lower lobe subsegmental atelectasis/scarring. No suspicious pulmonary mass, infiltrate, or effusion. Bony thorax intact with minimal degenerative changes throughout the spine. Limited upper abdomen demonstrates mild diffuse fatty liver. Impression: 1. Negative pulmonary embolus 2. Minimal pulmonary emphysema and bibasilar atelectasis/scarring. 3. Matted precarinal lymph nodes presumed reactive. 4. No acute cardiopulmonary abnormalities. 5. Mild fatty liver. Comment: Preliminary interpretation was made by [facility]. No critical discrepancy. CTDI 26.67
[2019-05-07] MEDS: Sodium Chloride 0.9% 1000 ML 1,000 ML IV SCH ×3 (01:14→23:33)
[2019-05-07] MEDS: DUONEB 0.5-3 MG/3 ml Neb IH SCH ×4 (05:43→19:02)
[2019-05-07] MEDS: solu-MEDROL 125 MG IV SCH (05:59)
[2019-05-07 06:07] LABS: Basophil (Absolute #) 0 (0-0.4); Eosinophil % 0.1 % (0.00-5.0); Eosinophil (Absolute #) 0.01 (0-0.5); Hematocrit 42.4 % (35-47); Hemoglobin 13.6 gm/dl (12.0-16.0); Lymphocyte (Absolute #) 0.77 (1.0-4.6); Lymphocytes % 10.4 % (24.0-44.0); Mean Cell Volume 101.4 fl (78-100); Mean Corpuscular Hemoglobin 32.5 pg (26-32); Mean Corpuscular Hgb Concent. 32.1 g/dl (32-36); Mean Platelet Volume 11.5 fl (6-9.5); Monocyte (Absolute #) 0.23 (0.0-1.3); Monocytes % 3.1 % (0.0-12.0); Neutrophil % 86.4 % (36.0-66.0); Platelet Count 169 K/mm3 (150-450); Red Blood Count 4.18 M/mm3 (4.1-5.4); Red Cell Distribution Width 13.1 % (11.5-14.0); White Blood Count 7.4 K/mm3 (4.0-10.5)
[2019-05-07 06:25] LABS: ALBUMIN 3.4 g/dL (3.5-5.0); ALKALINE PHOSPHATASE 78 U/L (38-126); ANION GAP 11.3 MEQ/L (5-15); BLOOD UREA NITROGEN 7 mg/dL (7-17); CHLORIDE 106 mmol/L (98-107); Calcium 8.1 mg/dL (8.4-10.2); Carbon Dioxide 30 mmol/L (22-30); Creatinine 1 0.44 mg/dL (0.52-1.04); Glucose 146 mg/dL (74-106); Potassium 4.1 mmol/L (3.5-5.1); SGOT/AST 23 U/L (14-36); SGPT/ALT 13 U/L (0-35); SODIUM 144 mmol/L (137-145); Total Protein 6.4 g/dL (6.3-8.2)
[2019-05-07] MEDS: Advair Hfa 115/21 Common canister IH SCH ×2 (07:10→19:02)
--- NOTE | 2019-05-07 08:39 | PCM.NOTE ---
Date and Time: 05/07/19837 Subjective Assessment: patient notes some mild improvement in her breathing, felt a little confused this morning. Objective Exam General Appearance: no apparent distress Neurologic Exam: alert, oriented x 3 Respiratory Exam: wheezing (improved), No respiratory distress, No accessory muscle use, No prolonged expirations Cardiovascular Exam: regular rate/rhythm, normal heart sounds Gastrointestinal/Abdomen Exam: soft, No tenderness, No mass Extremity Exam: normal inspection, normal range of motion OBJECTIVE DATA Vital Signs: Vital Signs - 24 hr Temp Pulse Resp BP Pulse Ox 05/07/19 07:16 84 18 92 L 05/07/19 07:15 98.7 F 84 18 114/58 92 L 05/07/19 04:00 98.5 F 91 H 18 127/57 92 L 05/07/19 00:00 98.4 F 90 20 125/56 91 L 05/06/19 19:45 98.1 F 78 18 128/60 93 L 05/06/19 19:43 78 20 93 L 05/06/19 16:00 98.1 F 74 18 110/53 89 L 05/06/19 13:14 70 20 91 L 05/06/19 12:00 98.6 F 70 18 125/58 93 L Oxygen-Last 24 hours O2 Percentage 5 Liters = 40% O2 Percentage 5 Liters = 40% O2 Percentage 5 Liters = 40% O2 Percentage 5 Liters = 40% O2 Percentage 5 Liters = 40% O2 Percentage 5 Liters = 40% Pain Assessment - Last Documented Pain Intensity 3 Pain Scale Used 0-10 Pain Scale Intake and Output: Intake & Output 05/04/19 05/05/19 05/06/19 05/07/19 11:59 11:59 11:59 11:59 Intake Total 2045 3686 Balance 2045 3686 Weight 90 kg Lab Results: Lab Results-Last 24 Hours 05/06/19 05/06/19 05/07/19 Range/Units 05:00 05:20 05:27 WBC 7.4 (4.0-10.5) K/mm3 RBC 4.18 (4.1-5.4) M/mm3 Hgb 13.6 (12.0-16.0) gm/dl Hct 42.4 (35-47) % MCV 101.4 H (78-100) fl MCH 32.5 H (26-32) pg MCHC 32.1 (32-36) g/dl RDW 13.1 (11.5-14.0) % Plt Count 169 (150-450) K/mm3 MPV 11.5 H (6-9.5) fl Gran % 86.4 H (36.0-66.0) % Eos # (Auto) 0.01 (0-0.5) Absolute Lymphs (auto) 0.77 L (1.0-4.6) Absolute Monos (auto) 0.23 (0.0-1.3) Lymphocytes % 10.4 L (24.0-44.0) % Monocytes % 3.1 (0.0-12.0) % Eosinophils % 0.1 (0.00-5.0) % Basophils % 0.0 (0.0-0.4) % Absolute Granulocytes 6.40 (1.4-6.9) Segmented Neutrophils 36 (36.0-66.0) % Band Neutrophils 4 H (0.0-2.0) % Lymphocytes (Manual) 44 (24-44) % Monocytes (Manual) 13 H (0.0-12.0) % Eosinophils (Manual) 1 (0.00-3.0) % Basophils # 0 (0-0.4) Atypical Lymphocytes 2 % Toxic Granulation 1+ Platelet Estimate NORMAL (NORMAL) RBC Morphology ABNORMAL Anisocytosis 1+ D-Dimer 645 H* (215-500) ng/mL Sodium (137-145) mmol/L Potassium (3.5-5.1) mmol/L Chloride (98-107) mmol/L Carbon Dioxide (22-30) mmol/L Anion Gap (5-15) MEQ/L BUN (7-17) mg/dL Creatinine (0.52-1.04) mg/dL Estimated GFR ML/MIN Glucose (74-106) mg/dL Calcium (8.4-10.2) mg/dL Total Bilirubin (0.2-1.3) mg/dL AST (14-36) U/L ALT (0-35) U/L Alkaline Phosphatase (38-126) U/L Serum Total Protein (6.3-8.2) g/dL Albumin (3.5-5.0) g/dL 05/07/19 Range/Units 05:27 WBC (4.0-10.5) K/mm3 RBC (4.1-5.4) M/mm3 Hgb (12.0-16.0) gm/dl Hct (35-47) % MCV (78-100) fl MCH (26-32) pg MCHC (32-36) g/dl RDW (11.5-14.0) % Plt Count (150-450) K/mm3 MPV (6-9.5) fl Gran % (36.0-66.0) % Eos # (Auto) (0-0.5) Absolute Lymphs (auto) (1.0-4.6) Absolute Monos (auto) (0.0-1.3) Lymphocytes % (24.0-44.0) % Monocytes % (0.0-12.0) % Eosinophils % (0.00-5.0) % Basophils % (0.0-0.4) % Absolute Granulocytes (1.4-6.9) Segmented Neutrophils (36.0-66.0) % Band Neutrophils (0.0-2.0) % Lymphocytes (Manual) (24-44) % Monocytes (Manual) (0.0-12.0) % Eosinophils (Manual) (0.00-3.0) % Basophils # (0-0.4) Atypical Lymphocytes % Toxic Granulation Platelet Estimate (NORMAL) RBC Morphology Anisocytosis D-Dimer (215-500) ng/mL Sodium 144 (137-145) mmol/L Potassium 4.1 (3.5-5.1) mmol/L Chloride 106 (98-107) mmol/L Carbon Dioxide 30 (22-30) mmol/L Anion Gap 11.3 (5-15) MEQ/L BUN 7 (7-17) mg/dL Creatinine 0.44 L (0.52-1.04) mg/dL Estimated GFR > 60.0 ML/MIN Glucose 146 H (74-106) mg/dL Calcium 8.1 L (8.4-10.2) mg/dL Total Bilirubin 0.10 L (0.2-1.3) mg/dL AST 23 (14-36) U/L ALT 13 (0-35) U/L Alkaline Phosphatase 78 (38-126) U/L Serum Total Protein 6.4 (6.3-8.2) g/dL Albumin 3.4 L (3.5-5.0) g/dL Radiology Exams: Radiology Procedures Category Date Time Status CHEST WITH CONTRAST [CT] Stat Exams 05/06/19 10:29 Completed Assessment/Plan (1) COPD with acute exacerbation Current Visit: Yes Status: Acute Assessment & Plan: continue rocephin/zithromax, nebs and IV solu medrol. will decrease steroid dose at this time. Code(s): J44.1 - CHRONIC OBSTRUCTIVE PULMONARY DISEASE W (ACUTE) EXACERBATION (2) Pneumonia of right lower lobe due to infectious organism Current Visit: Yes Status: Acute Code(s): J18.1 - LOBAR PNEUMONIA, UNSPECIFIED ORGANISM (3) Hypoxia Current Visit: Yes Status: Acute Code(s): R09.02 - HYPOXEMIA
[2019-05-07] MEDS ORDERED: solu-MEDROL 125 MG IV SCH (08:40)
[2019-05-07] MEDS: SYNTHROID 50 MCG PO SCH (10:28)
[2019-05-07] MEDS: ENOXAPARIN SODIUM SQ SCH (10:28)
[2019-05-07] MEDS: LYRICA 100MG PO SCH ×2 (10:28→21:05)
[2019-05-07] MEDS: Pepcid 20 MG VIAL IV SCH ×2 (10:29→21:04)
[2019-05-07] MEDS: solu-MEDROL 40 MG IV SCH ×3 (12:14→23:33)
[2019-05-07] MEDS ORDERED: xanAX 0.25 MG PO SCH (18:00)
[2019-05-07] MEDS: ROCEPHIN 1 Gm-D5w 50 ml Bag** 1 G/50 ML IVPB IV SCH (21:05)
[2019-05-07] MEDS: Zithromax 500 MG/ 250 ML NaCl Premix 500 MG/250 ML IVPB IV SCH (21:51)
[2019-05-07] MEDS: Ambien 5 MG Tablet PO PRN (21:56)
[2019-05-07] MEDS: NICODERM CQ 14 MG TOP SCH (23:56)
[2019-05-08] MEDS: DUONEB 0.5-3 MG/3 ml Neb IH SCH ×4 (01:06→20:20)
[2019-05-08 04:55] LABS: Hematocrit 41.6 % (35-47); Hemoglobin 13.4 gm/dl (12.0-16.0); Mean Cell Volume 101.7 fl (78-100); Mean Corpuscular Hgb Concent. 32.2 g/dl (32-36); Platelet Count 176 K/mm3 (150-450); Red Blood Count 4.09 M/mm3 (4.1-5.4); Red Cell Distribution Width 13.5 % (11.5-14.0)
[2019-05-08 04:58] LABS: Mean Corpuscular Hemoglobin 32.7 pg (26-32)
[2019-05-08 05:22] LABS: ANION GAP 9.9 MEQ/L (5-15); BLOOD UREA NITROGEN 10 mg/dL (7-17); CHLORIDE 106 mmol/L (98-107); Calcium 8.2 mg/dL (8.4-10.2); Carbon Dioxide 33 mmol/L (22-30); Creatinine 1 0.41 mg/dL (0.52-1.04); Glucose 119 mg/dL (74-106); Potassium 3.8 mmol/L (3.5-5.1); SODIUM 146 mmol/L (137-145)
[2019-05-08] MEDS: solu-MEDROL 40 MG IV SCH ×3 (05:26→17:58)
[2019-05-08] MEDS: TYLENOL 325 MG PO PRN ×2 (07:03→18:02)
[2019-05-08] MEDS: Advair Hfa 115/21 Common canister IH SCH ×2 (07:23→20:35)
[2019-05-08 07:47] LABS: BAND 7 % (0.0-2.0); Lymphocytes 7 % (24-44); Monocyte 3 % (0.0-12.0); Neutrophils 83 % (36.0-66.0); Platelet Estimate NORMAL (NORMAL); Total Cells Counted 100; Toxic Granulation 2+
--- NOTE | 2019-05-08 08:13 | PCM.NOTE ---
Date and Time: 05/08/19809 Subjective Assessment: patient is feeling better but still became winded quickly off of oxygen in the restroom, no other complaints. oxygen requirement still 5L NC Objective Exam General Appearance: no apparent distress Neurologic Exam: alert, oriented x 3 Skin Exam: normal color, warm, dry Respiratory Exam: normal breath sounds, prolonged expirations Cardiovascular Exam: regular rate/rhythm, normal heart sounds Gastrointestinal/Abdomen Exam: soft, No tenderness, No mass Extremity Exam: normal inspection, normal range of motion OBJECTIVE DATA Vital Signs: Vital Signs - 24 hr Temp Pulse Resp BP Pulse Ox 05/08/19 07:25 93 H 16 92 L 05/08/19 07:10 98.4 F 89 20 137/70 93 L 05/08/19 04:00 97.9 F 94 H 18 142/71 93 L 05/08/19 01:07 87 20 92 L 05/08/19 00:00 97.9 F 75 18 141/60 92 L 05/07/19 19:51 98.5 F 89 18 130/60 91 L 05/07/19 19:03 95 H 20 91 L 05/07/19 15:50 98.4 F 100 H 18 119/68 90 L 05/07/19 13:00 95 H 18 92 L 05/07/19 11:57 98.8 F 92 H 20 130/63 90 L Oxygen-Last 24 hours O2 Percentage 5 Liters = 40% O2 Percentage 6 Liters = 44% O2 Percentage 5 Liters = 40% O2 Percentage 5 Liters = 40% O2 Percentage 5 Liters = 40% O2 Percentage 5 Liters = 40% Pain Assessment - Last Documented Pain Intensity 5 Pain Scale Used 0-10 Pain Scale Intake and Output: Intake & Output 05/05/19 05/06/19 05/07/19 05/08/19 11:59 11:59 11:59 11:59 Intake Total 6 4166 3748 Balance 6 4166 3748 Weight 90 kg Lab Results: Lab Results-Last 24 Hours 05/07/19 05/07/19 05/08/19 Range/Units 05:27 05:27 04:52 WBC 20.0 H (4.0-10.5) K/mm3 RBC 4.09 L (4.1-5.4) M/mm3 Hgb 13.4 (12.0-16.0) gm/dl Hct 41.6 (35-47) % MCV 101.7 H (78-100) fl MCH 32.7 H (26-32) pg MCHC 32.2 (32-36) g/dl RDW 13.5 (11.5-14.0) % Plt Count 176 (150-450) K/mm3 MPV 12.0 H (6-9.5) fl Segmented Neutrophils 83 H (36.0-66.0) % Band Neutrophils 7 H (0.0-2.0) % Lymphocytes (Manual) 7 L (24-44) % Monocytes (Manual) 3 (0.0-12.0) % Toxic Granulation 2+ Platelet Estimate NORMAL (NORMAL) RBC Morphology NORMAL Sodium (137-145) mmol/L Potassium (3.5-5.1) mmol/L Chloride (98-107) mmol/L Carbon Dioxide (22-30) mmol/L Anion Gap (5-15) MEQ/L BUN (7-17) mg/dL Creatinine (0.52-1.04) mg/dL Estimated GFR ML/MIN Glucose (74-106) mg/dL Calcium (8.4-10.2) mg/dL Free T4 0.76 (0.76-1.46) ng/dL TSH 3rd Generation 0.692 (0.47-4.68) mIU/L 05/08/19 Range/Units 04:52 WBC (4.0-10.5) K/mm3 RBC (4.1-5.4) M/mm3 Hgb (12.0-16.0) gm/dl Hct (35-47) % MCV (78-100) fl MCH (26-32) pg MCHC (32-36) g/dl RDW (11.5-14.0) % Plt Count (150-450) K/mm3 MPV (6-9.5) fl Segmented Neutrophils (36.0-66.0) % Band Neutrophils (0.0-2.0) % Lymphocytes (Manual) (24-44) % Monocytes (Manual) (0.0-12.0) % Toxic Granulation Platelet Estimate (NORMAL) RBC Morphology Sodium 146 H (137-145) mmol/L Potassium 3.8 (3.5-5.1) mmol/L Chloride 106 (98-107) mmol/L Carbon Dioxide 33 H (22-30) mmol/L Anion Gap 9.9 (5-15) MEQ/L BUN 10 (7-17) mg/dL Creatinine 0.41 L (0.52-1.04) mg/dL Estimated GFR > 60.0 ML/MIN Glucose 119 H (74-106) mg/dL Calcium 8.2 L (8.4-10.2) mg/dL Free T4 (0.76-1.46) ng/dL TSH 3rd Generation (0.47-4.68) mIU/L Radiology Exams: Radiology Procedures Category Date Time Status CHEST WITH CONTRAST [CT] Stat Exams 05/06/19 10:29 Completed Assessment/Plan (1) COPD with acute exacerbation Current Visit: Yes Status: Acute Assessment & Plan: no wheezing on exam today, clinically much improved but still with significant oxygen requirement. CT chest was negative for PE, plan to consult pulm due to hypoxia and significant oxygen requirements, has no history and is a service patient but I suspect that she has rather advanced undiagnosed copd and will need oxygen at home, she is agreeable to see pulm and get established Code(s): J44.1 - CHRONIC OBSTRUCTIVE PULMONARY DISEASE W (ACUTE) EXACERBATION (2) Pneumonia of right lower lobe due to infectious organism Current Visit: Yes Status: Acute Assessment & Plan: on rocephin/zithromax Code(s): J18.1 - LOBAR PNEUMONIA, UNSPECIFIED ORGANISM (3) Hypoxia Current Visit: Yes Status: Acute Code(s): R09.02 - HYPOXEMIA
[2019-05-08] MEDS: ENOXAPARIN SODIUM SQ SCH (10:01)
[2019-05-08] MEDS: LYRICA 100MG PO SCH ×2 (10:01→21:12)
[2019-05-08] MEDS: Pepcid 20 MG VIAL IV SCH ×2 (10:01→21:12)
[2019-05-08] MEDS: SYNTHROID 50 MCG PO SCH (10:02)
[2019-05-08] MEDS: Sodium Chloride 0.9% 1000 ML 1,000 ML IV SCH ×2 (12:17→22:29)
[2019-05-08] MEDS: xanAX 0.25 MG PO PRN (12:25)
--- NOTE | 2019-05-08 14:56 | CONS ---
CONSULT DATE: 05/08/2019 REASON FOR CONSULT: Evaluation of shortness of breath. HISTORY: Miss Chinchilla is a 58 year-old woman with history of chronic obstructive pulmonary disease who has apparently was seen in [facility] Emergency Room. The patient was diagnosed to have community acquired pneumonia and was discharged on Levaquin. However, she returned back within 24 hours with tendonitis involving both feet. The patient's chest x-ray since then was unremarkable. A CT chest was obtained which showed no evidence of pulmonary embolism but did show some precarinal adenopathy along with small hiatal hernia. The patient is being treated with antibiotics, steroids and bronchodilators. The patient does report reduced effort tolerance mainly with climbing up a flight of stairs and carrying a load. PAST MEDICAL HISTORY: Positive for history of hypothyroidism, chronic obstructive pulmonary disease and peripheral neuropathy. PAST SURGICAL HISTORY: No recent surgery. PERSONAL AND SOCIAL HISTORY: She is smoking more than a pack of cigarettes per day. She also apparently has been smoking marijuana. MEDICATIONS: Home and current medications are reviewed. ALLERGIES: ALLERGIES NOTED. PHYSICAL EXAMINATION: This is a middle aged woman who appears fairly comfortable, able to talk without difficulty. Vital signs noted. HEENT: Normocephalic. Oral exam is limited. CVS: First and second heart sounds normal, regular, rhythmic. RESPIRATORY: Shows diminished breath sounds, bilateral rhonchi are heard which apparently have improved significantly since admission. ABDOMEN: Soft. No edema is noted. EXTREMITIES: The patient is able to do dorsiflexion of both feet without difficulty. LABORATORY DATA AND TESTS: White count 20, hemoglobin 13.4, hematocrit 41, PLT 176,000. Sodium 146, potassium 3.8, chloride 106, bicarb 33, glucose 119, BUN 10, creatinine 0.4. TSH 0.6. Chest x-ray and CT chest noted. D-dimer 641. Blood cultures are negative. ASSESSMENT: This is a 58 year old woman admitted with: 1) Chronic obstructive pulmonary disease with acute exacerbation. 2) Acute bronchitis. 3) Hypoxemia currently on 4 liters oxygen. 4) Hyperthyroidism. 5) History of nicotine addiction and marijuana use. RECOMMENDATIONS: 1) I agree with present treatment. 2) Leukocytosis appears likely from steroid use, reduce steroids. 3) The patient was prescribed Symbicort inhaler but it is strength 80 and will need to be increased to 160. She was using this PRN. I explained to her the rationale of using every day 2 puffs b.i.d. 4) PFT as outpatient. 5) Need for complete smoking cessation and abstinence was stressed. 6) Further recommendations will pending clinical improvement. 7) Will also obtain venous Doppler's in view of positive D-dimer. Thank you for allowing me to participate in the care of Miss Timmy Chinchilla.
--- NOTE | 2019-05-08 16:30 | XRAY ---
Indication: Bilateral leg pain. 2-dimensional sonogram and color Doppler imaging of the major venous vessels of the left and right leg was performed. Comparison: None No thrombus seen in the examined deep venous vessels of the left and right leg including greater saphenous vein. Veins demonstrate normal compressibility. Venous waveforms are normal with and without augmentation. Impression: Left and right legs negative for DVT.
[2019-05-08] MEDS: Ambien 5 MG Tablet PO PRN (21:12)
[2019-05-08] MEDS: ROCEPHIN 1 Gm-D5w 50 ml Bag** 1 G/50 ML IVPB IV SCH (21:12)
[2019-05-08] MEDS: Zithromax 500 MG/ 250 ML NaCl Premix 500 MG/250 ML IVPB IV SCH (22:29)
[2019-05-09] MEDS: solu-MEDROL 40 MG IV SCH ×5 (00:40→23:24)
[2019-05-09] MEDS: NICODERM CQ 14 MG TOP SCH (00:40)
[2019-05-09] MEDS: DUONEB 0.5-3 MG/3 ml Neb IH SCH ×4 (01:19→19:36)
[2019-05-09 04:50] LABS: Hematocrit 39.6 % (35-47); Hemoglobin 12.8 gm/dl (12.0-16.0); Mean Cell Volume 101.8 fl (78-100); Mean Corpuscular Hemoglobin 32.9 pg (26-32); Mean Corpuscular Hgb Concent. 32.3 g/dl (32-36); Mean Platelet Volume 11.2 fl (6-9.5); Platelet Count 186 K/mm3 (150-450); Red Blood Count 3.89 M/mm3 (4.1-5.4); Red Cell Distribution Width 13.5 % (11.5-14.0); White Blood Count 18.1 K/mm3 (4.0-10.5)
[2019-05-09 04:59] LABS: ANION GAP 8.1 MEQ/L (5-15); BLOOD UREA NITROGEN 12 mg/dL (7-17); CHLORIDE 106 mmol/L (98-107); Carbon Dioxide 33 mmol/L (22-30); Creatinine 1 0.44 mg/dL (0.52-1.04); Glucose 124 mg/dL (74-106); Potassium 3.8 mmol/L (3.5-5.1); SODIUM 143 mmol/L (137-145)
[2019-05-09 05:46] LABS: Lymphocytes 11 % (24-44); Monocyte 1 % (0.0-12.0); Neutrophils 88 % (36.0-66.0); Total Cells Counted 100
[2019-05-09 05:47] LABS: Platelet Estimate NORMAL (NORMAL)
[2019-05-09] MEDS: Advair Hfa 115/21 Common canister IH SCH ×2 (07:30→19:36)
[2019-05-09] MEDS: TYLENOL 325 MG PO PRN (08:37)
[2019-05-09] MEDS: Pepcid 20 MG VIAL IV SCH ×2 (08:54→21:54)
[2019-05-09] MEDS: LYRICA 100MG PO SCH ×2 (08:54→21:43)
[2019-05-09] MEDS: ENOXAPARIN SODIUM SQ SCH (08:55)
[2019-05-09] MEDS: SYNTHROID 50 MCG PO SCH (08:55)
[2019-05-09] MEDS: xanAX 0.25 MG PO PRN ×2 (09:02→21:45)
--- NOTE | 2019-05-09 11:50 | PCM.NOTE ---
Date and Time: 05/09/19 1143 late entry for 05/09/19 0830 Subjective Assessment: Pt still having SOB, says she's pretty good as long as she has her O2 on. [place]. - Review of Systems Constitutional: No Fever Respiratory: Cough, Short Of Breath Objective Exam General Appearance: no apparent distress, alert Neurologic Exam: oriented x 3, cooperative Skin Exam: normal color, warm, dry, No rash Respiratory Exam: diminished breath sounds (poor air exchange), wheezing (faint) , No crackles/rales, No rhonchi Cardiovascular Exam: regular rate/rhythm, normal heart sounds, No murmur Extremity Exam: No swelling, No tenderness OBJECTIVE DATA Vital Signs: Vital Signs - 24 hr Temp Pulse Resp BP Pulse Ox 05/09/19 08:04 77 18 97 05/09/19 07:28 98.5 F 85 22 163/70 96 05/09/19 04:00 98 F 85 16 127/61 94 L 05/09/19 01:19 82 18 94 L 05/09/19 00:00 97.7 F 86 20 131/67 98 05/08/19 20:20 88 14 93 L 05/08/19 20:00 97.7 F 88 16 150/68 92 L 05/08/19 16:14 98.1 F 93 H 20 131/57 92 L 05/08/19 13:14 94 H 18 93 L 05/08/19 12:15 98.6 F 78 20 134/61 93 L Oxygen-Last 24 hours O2 Percentage 4 Liters = 36% O2 Percentage 4 Liters = 36% O2 Percentage 4 Liters = 36% O2 Percentage 4 Liters = 36% O2 Percentage 4 Liters = 36% O2 Percentage 5 Liters = 40% Pain Assessment - Last Documented Pain Intensity 5 Pain Scale Used 0-10 Pain Scale Intake and Output: Intake & Output 05/06/19 05/07/19 05/08/19 05/09/19 11:59 11:59 11:59 11:59 Intake Total 2045 4166 3988 4130 Output Total 3000 Balance 2045 4166 3988 1130 Weight 90 kg 90 kg Lab Results: Lab Results-Last 24 Hours 05/09/19 05/09/19 Range/Units 04:28 04:28 WBC 18.1 H (4.0-10.5) K/mm3 RBC 3.89 L (4.1-5.4) M/mm3 Hgb 12.8 (12.0-16.0) gm/dl Hct 39.6 (35-47) % MCV 101.8 H (78-100) fl MCH 32.9 H (26-32) pg MCHC 32.3 (32-36) g/dl RDW 13.5 (11.5-14.0) % Plt Count 186 (150-450) K/mm3 MPV 11.2 H (6-9.5) fl Segmented Neutrophils 88 H (36.0-66.0) % Lymphocytes (Manual) 11 L (24-44) % Monocytes (Manual) 1 (0.0-12.0) % Platelet Estimate NORMAL (NORMAL) RBC Morphology NORMAL Sodium 143 (137-145) mmol/L Potassium 3.8 (3.5-5.1) mmol/L Chloride 106 (98-107) mmol/L Carbon Dioxide 33 H (22-30) mmol/L Anion Gap 8.1 (5-15) MEQ/L BUN 12 (7-17) mg/dL Creatinine 0.44 L (0.52-1.04) mg/dL Estimated GFR > 60.0 ML/MIN Glucose 124 H (74-106) mg/dL Calcium 8.0 L (8.4-10.2) mg/dL Radiology Exams: Radiology Procedures Category Date Time Status VENOUS BILATERAL EXTREMITY [US] Routine Exams 05/08/19 15:05 Completed Assessment/Plan (1) COPD with acute exacerbation Current Visit: Yes Status: Acute Assessment & Plan: On rocephin and zithromax day #4. On 4L NC currently. Dr. Boyle saw the pt yesterday, thank you. He noted she had been taking symbicort prn; she is to increase her dose to 160 and take BID scheduled. He agreed with current management, just discussed decreasing steroids and advised PFT outpatient. Code(s): J44.1 - CHRONIC OBSTRUCTIVE PULMONARY DISEASE W (ACUTE) EXACERBATION (2) Hypoxia Current Visit: Yes Status: Acute Code(s): R09.02 - HYPOXEMIA (3) Pneumonia of right lower lobe due to infectious organism Current Visit: Yes Status: Acute Code(s): J18.1 - LOBAR PNEUMONIA, UNSPECIFIED ORGANISM (4) Hypocalcemia Current Visit: Yes Status: Suspected Assessment & Plan: corrected for most recent albumin measurement of 3.4, Ca is wnl at 8.48. Code(s): E83.51 - HYPOCALCEMIA
[2019-05-09] MEDS: Sodium Chloride 0.9% 1000 ML 1,000 ML IV SCH (11:53)
[2019-05-09] MEDS: Mucinex 600MG ER Tabs PO SCH ×2 (16:09→21:50)
[2019-05-09] MEDS: ROCEPHIN 1 Gm-D5w 50 ml Bag** 1 G/50 ML IVPB IV SCH (21:43)
[2019-05-09] MEDS: Zithromax 500 MG/ 250 ML NaCl Premix 500 MG/250 ML IVPB IV SCH (23:24)
[2019-05-10] MEDS: NICODERM CQ 14 MG TOP SCH (00:01)
[2019-05-10] MEDS: DUONEB 0.5-3 MG/3 ml Neb IH SCH ×4 (00:42→19:09)
[2019-05-10] MEDS: Ambien 5 MG Tablet PO PRN (00:46)
[2019-05-10] MEDS: Sodium Chloride 0.9% 1000 ML 1,000 ML IV SCH ×2 (01:16→22:34)
[2019-05-10] MEDS: solu-MEDROL 40 MG IV SCH ×3 (06:41→21:51)
[2019-05-10] MEDS: Advair Hfa 115/21 Common canister IH SCH ×2 (06:43→19:13)
[2019-05-10] MEDS: xanAX 0.25 MG PO PRN ×2 (08:33→21:50)
--- NOTE | 2019-05-10 09:57 | PCM.NOTE ---
Date and Time: 05/10/19953 Subjective Assessment: patient is still requiring 4L oxygen, xanax is helping with her anxiety. she continues to have some improvement in her breathing. Objective Exam General Appearance: no apparent distress Neurologic Exam: alert, oriented x 3 Respiratory Exam: wheezing, No respiratory distress Cardiovascular Exam: regular rate/rhythm, normal heart sounds Gastrointestinal/Abdomen Exam: soft, No tenderness, No mass Extremity Exam: normal inspection, normal range of motion OBJECTIVE DATA Vital Signs: Vital Signs - 24 hr Temp Pulse Resp BP Pulse Ox 05/10/19 07:40 97.3 F 78 22 164/93 90 L 05/10/19 06:47 78 22 90 L 05/10/19 04:00 97.9 F 86 20 119/56 93 L 05/10/19 00:43 76 20 93 L 05/10/19 00:00 98.3 F 88 20 136/67 95 05/09/19 20:00 98.3 F 80 20 135/71 93 L 05/09/19 19:37 86 20 94 L 05/09/19 16:00 96.4 F 85 20 161/75 90 L 05/09/19 13:09 80 20 05/09/19 12:00 97.5 F 85 20 129/62 91 L Oxygen-Last 24 hours O2 Percentage 4 Liters = 36% O2 Percentage 4 Liters = 36% Oxygen Flowrate (L/min)-RT 4 Oxygen Flowrate (L/min)-RT 4 Pain Assessment - Last Documented Pain Intensity 5 Pain Scale Used 0-10 Pain Scale Intake and Output: Intake & Output 05/07/19 05/08/19 05/09/19 05/10/19 11:59 11:59 11:59 11:59 Intake Total 4166 3988 4130 3329 Output Total 3000 450 Balance 4166 3988 1130 2879 Weight 90 kg Radiology Exams: Radiology Procedures Category Date Time Status VENOUS BILATERAL EXTREMITY [US] Routine Exams 05/08/19 15:05 Completed Assessment/Plan (1) COPD with acute exacerbation Current Visit: Yes Status: Acute Assessment & Plan: reduce solu medrol to 40mg q8hrs, continue nebs Code(s): J44.1 - CHRONIC OBSTRUCTIVE PULMONARY DISEASE W (ACUTE) EXACERBATION (2) Pneumonia of right lower lobe due to infectious organism Current Visit: Yes Status: Acute Code(s): J18.1 - LOBAR PNEUMONIA, UNSPECIFIED ORGANISM (3) Hypoxia Current Visit: Yes Status: Acute Code(s): R09.02 - HYPOXEMIA
[2019-05-10] MEDS: Pepcid 20 MG VIAL IV SCH ×2 (11:31→21:51)
[2019-05-10] MEDS: LYRICA 100MG PO SCH ×2 (11:31→21:50)
[2019-05-10] MEDS: Mucinex 600MG ER Tabs PO SCH ×2 (11:31→21:51)
[2019-05-10] MEDS: SYNTHROID 50 MCG PO SCH (11:31)
[2019-05-10] MEDS: ENOXAPARIN SODIUM SQ SCH (11:31)
[2019-05-10] MEDS: ROCEPHIN 1 Gm-D5w 50 ml Bag** 1 G/50 ML IVPB IV SCH (21:56)
[2019-05-10] MEDS: Zithromax 500 MG/ 250 ML NaCl Premix 500 MG/250 ML IVPB IV SCH (22:34)
[2019-05-11] MEDS: NICODERM CQ 14 MG TOP SCH (00:32)
[2019-05-11] MEDS: DUONEB 0.5-3 MG/3 ml Neb IH SCH ×4 (01:10→19:11)
[2019-05-11 04:53] LABS: Hematocrit 40.4 % (35-47); Hemoglobin 13.1 gm/dl (12.0-16.0); Mean Corpuscular Hgb Concent. 32.4 g/dl (32-36); Mean Platelet Volume 11.1 fl (6-9.5); Platelet Count 188 K/mm3 (150-450); Red Cell Distribution Width 13.5 % (11.5-14.0); White Blood Count 10.3 K/mm3 (4.0-10.5)
[2019-05-11 04:58] LABS: Mean Corpuscular Hemoglobin 32.7 pg (26-32)
[2019-05-11 05:17] LABS: ALBUMIN 3.1 g/dL (3.5-5.0); ALKALINE PHOSPHATASE 58 U/L (38-126); ANION GAP 9.2 MEQ/L (5-15); BLOOD UREA NITROGEN 15 mg/dL (7-17); CHLORIDE 104 mmol/L (98-107); Calcium 7.9 mg/dL (8.4-10.2); Carbon Dioxide 34 mmol/L (22-30); Glucose 124 mg/dL (74-106); Potassium 3.8 mmol/L (3.5-5.1); SGOT/AST 30 U/L (14-36); SGPT/ALT 19 U/L (0-35); SODIUM 144 mmol/L (137-145); Total Protein 5.8 g/dL (6.3-8.2)
[2019-05-11 05:57] LABS: Lymphocytes 9 % (24-44); Monocyte 3 % (0.0-12.0); Neutrophils 88 % (36.0-66.0); Platelet Estimate NORMAL (NORMAL); Total Cells Counted 100
[2019-05-11] MEDS: solu-MEDROL 40 MG IV SCH (06:00)
[2019-05-11] MEDS: Advair Hfa 115/21 Common canister IH SCH ×2 (06:46→19:13)
[2019-05-11] MEDS: DULCOLAX 5 MG PO PRN (06:58)
[2019-05-11] MEDS: xanAX 0.25 MG PO PRN ×3 (07:20→20:31)
--- NOTE | 2019-05-11 08:27 | PCM.NOTE ---
Date and Time: 05/11/19825 Subjective Assessment: patient is more short of breath today, feeling discouraged about oxygen. cough is productive of thick sputum Objective Exam General Appearance: no apparent distress Neurologic Exam: alert, oriented x 3 Respiratory Exam: wheezing Cardiovascular Exam: regular rate/rhythm, normal heart sounds Gastrointestinal/Abdomen Exam: soft, No tenderness, No mass Extremity Exam: normal inspection, normal range of motion OBJECTIVE DATA Vital Signs: Vital Signs - 24 hr Temp Pulse Resp BP Pulse Ox 05/11/19 07:48 97.3 F 64 20 145/68 92 L 05/11/19 07:47 91 L 05/11/19 07:40 65 19 94 L 05/11/19 04:00 97.8 F 76 20 133/58 95 05/11/19 01:10 20 05/10/19 23:48 98.2 F 85 19 136/76 94 L 05/10/19 19:51 98.2 F 74 18 144/74 91 L 05/10/19 19:09 91 H 17 95 05/10/19 16:00 98.4 F 72 20 139/72 94 L 05/10/19 13:16 83 22 93 L 05/10/19 11:58 98.4 F 84 20 139/72 92 L Oxygen-Last 24 hours O2 Percentage 5 Liters = 40% O2 Percentage 4 Liters = 36% O2 Percentage 4 Liters = 36% O2 Percentage 4 Liters = 36% O2 Percentage 4 Liters = 36% O2 Percentage 4 Liters = 36% Pain Assessment - Last Documented Pain Intensity 0 Pain Scale Used 0-10 Pain Scale Intake and Output: Intake & Output 05/08/19 05/09/19 05/10/19 05/11/19 11:59 11:59 11:59 11:59 Intake Total 3988 4130 3329 3947 Output Total 3000 450 Balance 3988 1130 2879 3947 Weight 90 kg Lab Results: Lab Results-Last 24 Hours 05/11/19 05/11/19 Range/Units 04:25 04:25 WBC 10.3 (4.0-10.5) K/mm3 RBC 4.00 L (4.1-5.4) M/mm3 Hgb 13.1 (12.0-16.0) gm/dl Hct 40.4 (35-47) % MCV 101.0 H (78-100) fl MCH 32.7 H (26-32) pg MCHC 32.4 (32-36) g/dl RDW 13.5 (11.5-14.0) % Plt Count 188 (150-450) K/mm3 MPV 11.1 H (6-9.5) fl Segmented Neutrophils 88 H (36.0-66.0) % Lymphocytes (Manual) 9 L (24-44) % Monocytes (Manual) 3 (0.0-12.0) % Platelet Estimate NORMAL (NORMAL) RBC Morphology NORMAL Sodium 144 (137-145) mmol/L Potassium 3.8 (3.5-5.1) mmol/L Chloride 104 (98-107) mmol/L Carbon Dioxide 34 H (22-30) mmol/L Anion Gap 9.2 (5-15) MEQ/L BUN 15 (7-17) mg/dL Creatinine 0.50 L (0.52-1.04) mg/dL Estimated GFR > 60.0 ML/MIN Glucose 124 H (74-106) mg/dL Calcium 7.9 L (8.4-10.2) mg/dL Total Bilirubin 0.30 (0.2-1.3) mg/dL AST 30 (14-36) U/L ALT 19 (0-35) U/L Alkaline Phosphatase 58 (38-126) U/L Serum Total Protein 5.8 L (6.3-8.2) g/dL Albumin 3.1 L (3.5-5.0) g/dL Multi-Disciplinary Progress Notes: Multi-Disciplinary Progress Notes 05/10/19 12:48 Nutrition Note by Bell Paz F/u Note: Note regular diet con't with 75% po intake. Labs 05/09: Cr 0.44, glu 124, alb 3.4, hgb 12.8, hct 39.6. meeting goal; ongoing. Will monitor and f/u prn. Tavares MSRDCD Initialized on 05/10/19 12:48 - END OF NOTE Assessment/Plan (1) COPD with acute exacerbation Current Visit: Yes Status: Acute Assessment & Plan: wheezing has worsened, will increase solu medrol dosage, continue antibiotics and nebs at this time. Code(s): J44.1 - CHRONIC OBSTRUCTIVE PULMONARY DISEASE W (ACUTE) EXACERBATION (2) Pneumonia of right lower lobe due to infectious organism Current Visit: Yes Status: Acute Code(s): J18.1 - LOBAR PNEUMONIA, UNSPECIFIED ORGANISM (3) Hypoxia Current Visit: Yes Status: Acute Code(s): R09.02 - HYPOXEMIA
[2019-05-11] MEDS: ENOXAPARIN SODIUM SQ SCH (09:29)
[2019-05-11] MEDS: SYNTHROID 50 MCG PO SCH (09:29)
[2019-05-11] MEDS: Mucinex 600MG ER Tabs PO SCH ×2 (09:29→22:44)
[2019-05-11] MEDS: Pepcid 20 MG VIAL IV SCH ×2 (09:30→22:44)
[2019-05-11] MEDS: LYRICA 100MG PO SCH ×2 (09:30→22:43)
[2019-05-11] MEDS: Sodium Chloride 0.9% 1000 ML 1,000 ML IV SCH ×2 (09:33→21:01)
[2019-05-11] MEDS: solu-MEDROL 125 MG IV SCH ×3 (12:19→23:50)
[2019-05-11] MEDS: Ambien 5 MG Tablet PO PRN (22:43)
[2019-05-11] MEDS: ROCEPHIN 1 Gm-D5w 50 ml Bag** 1 G/50 ML IVPB IV SCH (22:44)
[2019-05-11] MEDS: Zithromax 500 MG/ 250 ML NaCl Premix 500 MG/250 ML IVPB IV SCH (23:50)
[2019-05-12] MEDS: DUONEB 0.5-3 MG/3 ml Neb IH SCH ×4 (00:56→19:56)
[2019-05-12] MEDS: NICODERM CQ 14 MG TOP SCH (02:43)
[2019-05-12 05:51] LABS: Hematocrit 40.5 % (35-47); Hemoglobin 13.2 gm/dl (12.0-16.0); Mean Cell Volume 100.7 fl (78-100); Mean Corpuscular Hemoglobin 32.8 pg (26-32); Mean Corpuscular Hgb Concent. 32.6 g/dl (32-36); Mean Platelet Volume 11.6 fl (6-9.5); Platelet Count 201 K/mm3 (150-450); Red Blood Count 4.02 M/mm3 (4.1-5.4); Red Cell Distribution Width 13.2 % (11.5-14.0); White Blood Count 10.3 K/mm3 (4.0-10.5)
[2019-05-12] MEDS: solu-MEDROL 125 MG IV SCH ×3 (05:55→18:42)
[2019-05-12 06:14] LABS: ANION GAP 9.1 MEQ/L (5-15); BLOOD UREA NITROGEN 13 mg/dL (7-17); CHLORIDE 106 mmol/L (98-107); Calcium 7.9 mg/dL (8.4-10.2); Carbon Dioxide 33 mmol/L (22-30); Creatinine 1 0.43 mg/dL (0.52-1.04); Glucose 136 mg/dL (74-106); Potassium 3.7 mmol/L (3.5-5.1); SODIUM 144 mmol/L (137-145)
[2019-05-12 07:23] LABS: ATYPICAL LYMPHS 1 %; BAND 7 % (0.0-2.0); Lymphocytes 8 % (24-44); Monocyte 4 % (0.0-12.0); Neutrophils 80 % (36.0-66.0); Platelet Estimate NORMAL (NORMAL); Total Cells Counted 100
[2019-05-12 07:24] LABS: Absolute Neutrophil Ct (ANC) 8.94 (1.4-6.9); Macrocytosis 1+
--- NOTE | 2019-05-12 08:21 | PCM.NOTE ---
Date and Time: 05/12/19819 Subjective Assessment: patient is still very short of breath and not up moving much, cough is productive of thick sputum. not able to sleep well last night, still feels poor Objective Exam General Appearance: no apparent distress, alert Skin Exam: normal color, warm, dry Respiratory Exam: prolonged expirations, wheezing Cardiovascular Exam: regular rate/rhythm, normal heart sounds Gastrointestinal/Abdomen Exam: soft, No tenderness, No mass Extremity Exam: normal inspection, normal range of motion OBJECTIVE DATA Vital Signs: Vital Signs - 24 hr Temp Pulse Resp BP Pulse Ox 05/12/19 07:48 98.6 F 75 20 158/74 90 L 05/12/19 07:24 81 22 92 L 05/12/19 03:52 97.8 F 94 H 17 156/78 91 L 05/12/19 00:56 91 H 21 85 L 05/12/19 00:00 98.5 F 77 20 169/84 91 L 05/11/19 19:59 97.9 F 75 14 174/79 91 L 05/11/19 19:11 73 16 91 L 05/11/19 15:59 98 F 73 20 171/85 91 L 05/11/19 15:25 91 L 05/11/19 15:19 91 L 05/11/19 12:57 85 17 95 05/11/19 11:43 98.1 F 83 18 163/76 90 L Oxygen-Last 24 hours O2 Percentage 2 Liters = 28% O2 Percentage 3 Liters = 32% O2 Percentage 3 Liters = 32% O2 Percentage 2 Liters = 28% O2 Percentage 5 Liters = 40% Oxygen Flowrate (L/min)-RT 2 Pain Assessment - Last Documented Pain Intensity 0 Pain Scale Used FLACC Intake and Output: Intake & Output 05/09/19 05/10/19 05/11/19 05/12/19 11:59 11:59 11:59 11:59 Intake Total 4130 3329 4547 3314 Output Total 3000 450 2101 Balance 1130 2879 4547 1213 Weight 90 kg Lab Results: Lab Results-Last 24 Hours 05/12/19 05/12/19 Range/Units 04:00 04:00 WBC 10.3 (4.0-10.5) K/mm3 RBC 4.02 L (4.1-5.4) M/mm3 Hgb 13.2 (12.0-16.0) gm/dl Hct 40.5 (35-47) % MCV 100.7 H (78-100) fl MCH 32.8 H (26-32) pg MCHC 32.6 (32-36) g/dl RDW 13.2 (11.5-14.0) % Plt Count 201 (150-450) K/mm3 MPV 11.6 H (6-9.5) fl Absolute Granulocytes 8.94 H (1.4-6.9) Segmented Neutrophils 80 H (36.0-66.0) % Band Neutrophils 7 H (0.0-2.0) % Lymphocytes (Manual) 8 L (24-44) % Monocytes (Manual) 4 (0.0-12.0) % Atypical Lymphocytes 1 % Platelet Estimate NORMAL (NORMAL) RBC Morphology ABNORMAL Macrocytosis 1+ Sodium 144 (137-145) mmol/L Potassium 3.7 (3.5-5.1) mmol/L Chloride 106 (98-107) mmol/L Carbon Dioxide 33 H (22-30) mmol/L Anion Gap 9.1 (5-15) MEQ/L BUN 13 (7-17) mg/dL Creatinine 0.43 L (0.52-1.04) mg/dL Estimated GFR > 60.0 ML/MIN Glucose 136 H (74-106) mg/dL Calcium 7.9 L (8.4-10.2) mg/dL Multi-Disciplinary Progress Notes: Multi-Disciplinary Progress Notes 05/11/19 09:45 (created 05/11/19 15:46) Case Management Note by Moira Ramirez PLANS TO RETURN HOME TO PRE EPISODIC LEVEL OF [place], STILL REQUIRING SUPPLEMENTAL OXYGEN AT 4-5L PER NC. WILL LIKELY NEED HOME OXYGEN ON DISCHARGE. NORMALLY INDEPENDENT WITH ALL ADL'S. Initialized on 05/11/19 15:46 - END OF NOTE Assessment/Plan (1) COPD with acute exacerbation Current Visit: Yes Status: Acute Assessment & Plan: continue rocephin, zithromax and IV solu medrol, nebs Code(s): J44.1 - CHRONIC OBSTRUCTIVE PULMONARY DISEASE W (ACUTE) EXACERBATION (2) Pneumonia of right lower lobe due to infectious organism Current Visit: Yes Status: Acute Code(s): J18.1 - LOBAR PNEUMONIA, UNSPECIFIED ORGANISM (3) Hypoxia Current Visit: Yes Status: Acute Code(s): R09.02 - HYPOXEMIA
[2019-05-12] MEDS: Sodium Chloride 0.9% 1000 ML 1,000 ML IV SCH (08:47)
[2019-05-12] MEDS: LYRICA 100MG PO SCH ×2 (10:01→21:18)
[2019-05-12] MEDS: SYNTHROID 50 MCG PO SCH (10:01)
[2019-05-12] MEDS: Mucinex 600MG ER Tabs PO SCH ×2 (10:01→21:18)
[2019-05-12] MEDS: xanAX 0.25 MG PO PRN ×3 (10:01→22:43)
[2019-05-12] MEDS: Pepcid 20 MG VIAL IV SCH ×2 (10:01→21:18)
[2019-05-12] MEDS: ENOXAPARIN SODIUM SQ SCH (10:01)
[2019-05-12] MEDS: Advair Hfa 115/21 Common canister IH SCH ×2 (13:44→19:56)
[2019-05-12] MEDS: Ambien 5 MG Tablet PO PRN (21:18)
[2019-05-12] MEDS: ROCEPHIN 1 Gm-D5w 50 ml Bag** 1 G/50 ML IVPB IV SCH (21:18)
[2019-05-12] MEDS: Zithromax 500 MG/ 250 ML NaCl Premix 500 MG/250 ML IVPB IV SCH (22:37)
[2019-05-13] MEDS: NICODERM CQ 14 MG TOP SCH (00:51)
[2019-05-13] MEDS: solu-MEDROL 125 MG IV SCH ×4 (00:51→19:20)
[2019-05-13] MEDS: DUONEB 0.5-3 MG/3 ml Neb IH SCH ×4 (00:58→19:21)
[2019-05-13 06:45] LABS: Absolute Neutrophil Ct (ANC) 8.92 (1.4-6.9); Basophil (Absolute #) 0 (0-0.4); Eosinophil (Absolute #) 0 (0-0.5); Hematocrit 40.5 % (35-47); Hemoglobin 13.3 gm/dl (12.0-16.0); Lymphocyte (Absolute #) 0.51 (1.0-4.6); Lymphocytes % 5.2 % (24.0-44.0); Mean Cell Volume 100.2 fl (78-100); Mean Corpuscular Hemoglobin 32.9 pg (26-32); Mean Corpuscular Hgb Concent. 32.8 g/dl (32-36); Mean Platelet Volume 11.8 fl (6-9.5); Monocyte (Absolute #) 0.45 (0.0-1.3); Monocytes % 4.6 % (0.0-12.0); Neutrophil % 90.2 % (36.0-66.0); Platelet Count 192 K/mm3 (150-450); Red Blood Count 4.04 M/mm3 (4.1-5.4); Red Cell Distribution Width 13.3 % (11.5-14.0); White Blood Count 9.9 K/mm3 (4.0-10.5)
[2019-05-13] MEDS: xanAX 0.25 MG PO PRN ×3 (07:00→23:00)
[2019-05-13 07:03] LABS: ALBUMIN 3.3 g/dL (3.5-5.0); ALKALINE PHOSPHATASE 66 U/L (38-126); ANION GAP 9.2 MEQ/L (5-15); BLOOD UREA NITROGEN 14 mg/dL (7-17); CHLORIDE 101 mmol/L (98-107); Calcium 8.3 mg/dL (8.4-10.2); Carbon Dioxide 37 mmol/L (22-30); Creatinine 1 0.49 mg/dL (0.52-1.04); Glucose 132 mg/dL (74-106); SGOT/AST 27 U/L (14-36); SGPT/ALT 24 U/L (0-35); SODIUM 143 mmol/L (137-145); Total Protein 5.8 g/dL (6.3-8.2)
[2019-05-13] MEDS: Advair Hfa 115/21 Common canister IH SCH ×2 (08:04→19:20)
[2019-05-13] MEDS: ENOXAPARIN SODIUM SQ SCH (09:28)
[2019-05-13] MEDS: LYRICA 100MG PO SCH ×2 (09:28→22:17)
[2019-05-13] MEDS: SYNTHROID 50 MCG PO SCH (09:29)
[2019-05-13] MEDS: Pepcid 20 MG VIAL IV SCH ×2 (09:29→22:18)
[2019-05-13] MEDS: Mucinex 600MG ER Tabs PO SCH ×2 (09:29→22:18)
--- NOTE | 2019-05-13 12:02 | PCM.NOTE ---
Date and Time: 05/13/19 1151 Subjective Assessment: 58 yr old female seen and examined this am. Patient reports she is still short of breath. She is coughing but not productive cough. She reports that she is not on oxygen at home routinely. Patient reports that she is not sure if she is taking preventative medication for COPD. - Review of Systems Constitutional: No Fever Eyes: No Vision Changes Ears, Nose, & Throat: No Nose Congestion, No Nose Discharge, No Sinus Drainage, No Throat Pain Respiratory: Cough, Short Of Breath, Wheezing Cardiac: No Chest Pain, No Edema Abdominal/Gastrointestinal: No Abdominal Pain, No Nausea, No Vomiting, No Diarrhea, No Constipation Genitourinary Symptoms: No Dysuria, No Frequency, No Hematuria Skin: No Symptoms, No Cellulitis Neurological: Headache (improved) Psychological: Anxiety (Hx of anxiety ), No Depression Objective Exam General Appearance: mild distress Neurologic Exam: alert, oriented x 3 (Patient was confused when discussing her current treatment plan.), cooperative, normal mood/affect Skin Exam: normal color, warm, dry, No rash Eye Exam: eyes nml inspection, No scleral icterus Ears, Nose, Throat Exam: moist mucous membranes Neck Exam: normal inspection Respiratory Exam: diminished breath sounds, accessory muscle use, crackles/rales , wheezing Cardiovascular Exam: regular rate/rhythm, normal heart sounds, No murmur, No edema Gastrointestinal/Abdomen Exam: soft, normal bowel sounds, No tenderness, No distention Extremity Exam: normal inspection, No pedal edema, No swelling, No tenderness OBJECTIVE DATA Vital Signs: Vital Signs - 24 hr Temp Pulse Resp BP Pulse Ox 05/13/19 08:51 75 20 92 L 05/13/19 07:25 97.8 F 80 20 153/79 96 05/13/19 04:00 97.9 F 83 22 165/80 92 L 05/13/19 00:59 77 94 L 05/13/19 00:18 98.3 F 77 18 145/70 94 L 05/12/19 20:00 98.5 F 81 22 143/81 91 L 05/12/19 16:00 98 F 77 20 175/86 94 L 05/12/19 14:21 80 16 96 05/12/19 12:00 98.7 F 73 18 177/85 94 L Oxygen-Last 24 hours O2 Percentage 2 Liters = 28% O2 Percentage 2 Liters = 28% O2 Percentage 2 Liters = 28% O2 Percentage 2 Liters = 28% O2 Percentage 2 Liters = 28% Pain Assessment - Last Documented Pain Intensity 0 Pain Scale Used FLACC Intake and Output: Intake & Output 05/10/19 05/11/19 05/12/19 05/13/19 11:59 11:59 11:59 11:59 Intake Total 3329 4547 3674 4467 Output Total 450 3601 3000 Balance 2879 4547 73 1467 Lab Results: Lab Results-Last 24 Hours 05/13/19 05/13/19 Range/Units 06:10 06:10 WBC 9.9 (4.0-10.5) K/mm3 RBC 4.04 L (4.1-5.4) M/mm3 Hgb 13.3 (12.0-16.0) gm/dl Hct 40.5 (35-47) % MCV 100.2 H (78-100) fl MCH 32.9 H (26-32) pg MCHC 32.8 (32-36) g/dl RDW 13.3 (11.5-14.0) % Plt Count 192 (150-450) K/mm3 MPV 11.8 H (6-9.5) fl Gran % 90.2 H (36.0-66.0) % Eos # (Auto) 0 (0-0.5) Absolute Lymphs (auto) 0.51 L (1.0-4.6) Absolute Monos (auto) 0.45 (0.0-1.3) Lymphocytes % 5.2 L (24.0-44.0) % Monocytes % 4.6 (0.0-12.0) % Eosinophils % 0.0 (0.00-5.0) % Basophils % 0.0 (0.0-0.4) % Absolute Granulocytes 8.92 H (1.4-6.9) Basophils # 0 (0-0.4) Sodium 143 (137-145) mmol/L Potassium 4.0 (3.5-5.1) mmol/L Chloride 101 (98-107) mmol/L Carbon Dioxide 37 H (22-30) mmol/L Anion Gap 9.2 (5-15) MEQ/L BUN 14 (7-17) mg/dL Creatinine 0.49 L (0.52-1.04) mg/dL Estimated GFR > 60.0 ML/MIN Glucose 132 H (74-106) mg/dL Calcium 8.3 L (8.4-10.2) mg/dL Total Bilirubin 0.50 (0.2-1.3) mg/dL AST 27 (14-36) U/L ALT 24 (0-35) U/L Alkaline Phosphatase 66 (38-126) U/L Serum Total Protein 5.8 L (6.3-8.2) g/dL Albumin 3.3 L (3.5-5.0) g/dL Multi-Disciplinary Progress Notes: Multi-Disciplinary Progress Notes 05/12/19 12:44 Case Management Note by Moira Ramirez PT IS OUT WALKING HALLS, REPORTS FEELING SOMEWHAT BETTER, DISCUSSED POSSIBILITY OF REQUIRING OXYGEN WHEN SHE GOES HOME. REPORTS THAT SHE UNDERSTANDS THAT SHE MAY NEED OXYGEN, BUT SHE IS HOPING THAT SHE WON'T. DISCUSSED [facility] FOR ADD[facility] SUPPORT, PT DENIES THE NEED. REPORTS THAT HER DAUGHTER WILL BE HOME WITH HER. DENIES ANY ADDNL NEEDS FOR DISCHARGE. Initialized on 05/12/19 12:44 - END OF NOTE Assessment/Plan (1) COPD with acute exacerbation Current Visit: Yes Status: Acute Assessment & Plan: Patient continues to require oxygen which is not baseline for her. She continues to get steroids, duonebs, and mucinex. Patient is on incentive spirometry. Patient is on chest flutter therapy. Started patient on theophylline. Will continue to manage symptoms but patient has been slow to improve. Patient may need oxygen as outpatient. Code(s): J44.1 - CHRONIC OBSTRUCTIVE PULMONARY DISEASE W (ACUTE) EXACERBATION (2) Pneumonia of right lower lobe due to infectious organism Current Visit: Yes Status: Acute Assessment & Plan: Patient is currently on Rocephin and azithromycin for pneumonia. Will consider repeat cxr if patient's symptoms persist. She is afebrile. She is still requiring oxygen. Code(s): J18.1 - LOBAR PNEUMONIA, UNSPECIFIED ORGANISM (3) Tobacco dependence Current Visit: No Status: Acute Code(s): F17.200 - NICOTINE DEPENDENCE, UNSPECIFIED, UNCOMPLICATED (4) Anxiety Current Visit: Yes Status: Acute Assessment & Plan: Will start patient on paxil and have patient follow up as outpatient for her anxiety. Patient reports she would like to be on Xanax to prevent her from smoking when she gets anxious around her kids. Code(s): F41.9 - ANXIETY DISORDER, UNSPECIFIED
[2019-05-13] MEDS: Paxil 12.5MG CR PO SCH (13:39)
[2019-05-13 15:13] LABS: BAND 4 % (0.0-2.0); Lymphocytes 4 % (24-44); Monocyte 4 % (0.0-12.0); Neutrophils 88 % (36.0-66.0); Platelet Estimate NORMAL (NORMAL); Total Cells Counted 100
[2019-05-13] MEDS: ROCEPHIN 1 Gm-D5w 50 ml Bag** 1 G/50 ML IVPB IV SCH (22:18)
[2019-05-13] MEDS: Ambien 5 MG Tablet PO PRN (22:28)
[2019-05-13] MEDS: Zithromax 500 MG/ 250 ML NaCl Premix 500 MG/250 ML IVPB IV SCH (22:59)
[2019-05-14] MEDS: solu-MEDROL 125 MG IV SCH ×4 (00:35→18:38)
[2019-05-14] MEDS: NICODERM CQ 14 MG TOP SCH (01:00)
[2019-05-14] MEDS: DUONEB 0.5-3 MG/3 ml Neb IH SCH ×4 (01:50→19:22)
[2019-05-14] MEDS: Advair Hfa 115/21 Common canister IH SCH ×2 (07:51→19:22)
[2019-05-14] MEDS: ENOXAPARIN SODIUM SQ SCH (09:30)
[2019-05-14] MEDS: LYRICA 100MG PO SCH ×2 (09:30→21:28)
[2019-05-14] MEDS: xanAX 0.25 MG PO PRN ×2 (09:31→18:45)
[2019-05-14] MEDS: Mucinex 600MG ER Tabs PO SCH ×2 (09:31→21:28)
[2019-05-14] MEDS: SYNTHROID 50 MCG PO SCH (09:31)
[2019-05-14] MEDS: Pepcid 20 MG VIAL IV SCH ×2 (09:31→21:27)
[2019-05-14] MEDS: Paxil 12.5MG CR PO SCH (09:32)
--- NOTE | 2019-05-14 09:44 | PCM.NOTE ---
Date and Time: 05/14/19938 Subjective Assessment: 58 yr old female seen and examined this am. Patient is extremely anxious. Patient reports that she has noticed more swelling in her legs. Patient reports that she does not notice this at home. She states that she is not on bp meds at home and checks her bp regularly at home and it is usually around 127/70s sometimes 130s. Patient reports that she is concerned about all the medications she is now taking. Patient reports that she is having some sinus congestion. Patient denies hx of CHF - Review of Systems Constitutional: No Fever Eyes: No Vision Changes Ears, Nose, & Throat: Nose Congestion Respiratory: No Cough, No Short Of Breath Cardiac: Edema, No Chest Pain Abdominal/Gastrointestinal: No Abdominal Pain, No Nausea, No Vomiting, No Diarrhea, No Constipation Skin: No Symptoms Neurological: No Headache Psychological: Anxiety Objective Exam General Appearance: moderate distress, anxiety (Patient is extremely anxious and has become concerned about any testing or new medication that is ordered. She reports hx of anxiety and has been on Xanax for this in the past.), other ( if weights are accurate then patient has had an approx 12 pound weight gain since admission.) Neurologic Exam: alert, oriented x 3, other (Depressed mood and anxious affect) Skin Exam: normal color, warm, dry, No rash Eye Exam: eyes nml inspection, No scleral icterus Ears, Nose, Throat Exam: moist mucous membranes Neck Exam: normal inspection Cardiovascular Exam: regular rate/rhythm, normal heart sounds, edema (+1 pitting edema lower extremities bilaterally), No murmur Gastrointestinal/Abdomen Exam: soft, normal bowel sounds, No tenderness Extremity Exam: pedal edema Pelvic Exam: deferred Rectal Exam: deferred OBJECTIVE DATA Vital Signs: Vital Signs - 24 hr Temp Pulse Resp BP Pulse Ox 05/14/19 09:05 88 16 95 05/14/19 07:24 97.8 F 87 20 178/84 98 05/14/19 04:00 97.4 F 79 20 137/76 93 L 05/14/19 01:50 79 20 93 L 05/13/19 23:45 98.5 F 78 20 142/75 95 05/13/19 20:00 98.5 F 83 22 135/75 94 L 05/13/19 19:22 83 22 92 L 05/13/19 16:35 98.2 F 76 20 133/76 95 05/13/19 13:29 74 20 91 L 05/13/19 12:52 98.1 F 80 20 158/80 93 L Oxygen-Last 24 hours O2 Percentage 4 Liters = 36% O2 Percentage 2 Liters = 28% O2 Percentage 2 Liters = 28% O2 Percentage 2 Liters = 28% O2 Percentage 2 Liters = 28% O2 Percentage 2 Liters = 28% Pain Assessment - Last Documented Pain Intensity 0 Pain Scale Used 0-10 Pain Scale Intake and Output: Intake & Output 05/11/19 05/12/19 05/13/19 05/14/19 11:59 11:59 11:59 11:59 Intake Total 4547 3674 4467 1491 Output Total 3601 3000 3400 Balance 4547 73 1467 -1909 Weight 96.8 kg Lab Results: Lab Results-Last 24 Hours 05/13/19 Range/Units 06:10 WBC 9.9 (4.0-10.5) K/mm3 RBC 4.04 L (4.1-5.4) M/mm3 Hgb 13.3 (12.0-16.0) gm/dl Hct 40.5 (35-47) % MCV 100.2 H (78-100) fl MCH 32.9 H (26-32) pg MCHC 32.8 (32-36) g/dl RDW 13.3 (11.5-14.0) % Plt Count 192 (150-450) K/mm3 MPV 11.8 H (6-9.5) fl Gran % 90.2 H (36.0-66.0) % Eos # (Auto) 0 (0-0.5) Absolute Lymphs (auto) 0.51 L (1.0-4.6) Absolute Monos (auto) 0.45 (0.0-1.3) Lymphocytes % 5.2 L (24.0-44.0) % Monocytes % 4.6 (0.0-12.0) % Eosinophils % 0.0 (0.00-5.0) % Basophils % 0.0 (0.0-0.4) % Absolute Granulocytes 8.92 H (1.4-6.9) Segmented Neutrophils 88 H (36.0-66.0) % Band Neutrophils 4 H (0.0-2.0) % Lymphocytes (Manual) 4 L (24-44) % Monocytes (Manual) 4 (0.0-12.0) % Basophils # 0 (0-0.4) Platelet Estimate NORMAL (NORMAL) RBC Morphology NORMAL Assessment/Plan (1) COPD with acute exacerbation Current Visit: Yes Status: Acute Assessment & Plan: Patient had to be transitioned to mask because she was having difficulty keeping the oxygen tubing in place. Patient still has decreased breath sounds and wheezing. Wheezes have decreased since yesterday. She reports she is trying to do incentive spirometry often. She denies cough. Will consider discharge today or tomorrow with patient to follow up with Dr Belcher. Patient is still requiring oxygen which is not baseline for her. Code(s): J44.1 - CHRONIC OBSTRUCTIVE PULMONARY DISEASE W (ACUTE) EXACERBATION (2) Pneumonia of right lower lobe due to infectious organism Current Visit: Yes Status: Acute Assessment & Plan: Patient has been receiving antibiotic treatment for pneumonia. Patient has been afebrile. Will continue to monitor. Code(s): J18.1 - LOBAR PNEUMONIA, UNSPECIFIED ORGANISM (3) Tobacco dependence Current Visit: No Status: Acute Code(s): F17.200 - NICOTINE DEPENDENCE, UNSPECIFIED, UNCOMPLICATED (4) Anxiety Current Visit: Yes Status: Acute Assessment & Plan: Patient has severed anxiety. Patient was started on Paxil however is resistant to taking routine medications. She would like to be put on Xanax. Patient will need to discuss this with her PCP Code(s): F41.9 - ANXIETY DISORDER, UNSPECIFIED (5) Weight gain Current Visit: Yes Status: Acute Assessment & Plan: Due to recent weight gain and reported edema, will get BNP. If patient has elevated BNP will get echo and will have to consider lasix with potassium supplementation.
[2019-05-14] MEDS ORDERED: Toprol Xl 50 MG PO ONE (10:00)
[2019-05-14] MEDS: THEOPHYLLINE ER 24HR PO SCH (11:07)
[2019-05-14] MEDS: Zithromax 500 MG/ 250 ML NaCl Premix 500 MG/250 ML IVPB IV SCH (21:26)
[2019-05-14] MEDS: ROCEPHIN 1 Gm-D5w 50 ml Bag** 1 G/50 ML IVPB IV SCH (21:26)
[2019-05-14] MEDS: Ambien 5 MG Tablet PO PRN (21:28)
[2019-05-15] MEDS: solu-MEDROL 125 MG IV SCH ×2 (00:54→05:58)
[2019-05-15] MEDS: DUONEB 0.5-3 MG/3 ml Neb IH SCH ×2 (01:00→07:39)
[2019-05-15] MEDS: xanAX 0.25 MG PO PRN ×2 (01:01→10:49)
[2019-05-15] MEDS: NICODERM CQ 14 MG TOP SCH (01:26)
[2019-05-15 07:16] VITALS: BP 137/74
[2019-05-15] MEDS: Advair Hfa 115/21 Common canister IH SCH (07:44)
--- NOTE | 2019-05-15 08:37 | PCM.DS ---
Discharge Summary Date of Admission: 05/06/19 10:00 Admitting Physician: VIVIAN NEELY Consults: Consults on Case 05/08/19 08:13 Consult Pulmonology ROUTINE Primary Care Provider: DAYSI KINSEY Allergies Allergies levofloxacin [From Levaquin] Allergy (Verified 05/05/19 21:48) morphine Allergy (Verified 04/30/19 09:25) Penicillins Allergy (Verified 04/30/19 09:25) varenicline [From Chantix] Adverse Reaction (Verified 05/05/19 21:48) Hospital Summary - Hospital Course Hospital Course: patient is feeling improved after treatment for copd exacerbation, requiring significant oxygen administration during stay. no prior hx of respiratory problems but is a longtime smoker - Vitals & Intake/Output Vital Signs: Vital Signs Temperature 98.3 F 05/15/19 07:14 Pulse Rate 75 05/15/19 07:14 Respiratory Rate 20 05/15/19 07:14 Blood Pressure 137/74 05/15/19 07:14 O2 Sat by Pulse Oximetry 94 L 05/15/19 07:14 Oxygen-Last Documented O2 Percentage 2 Liters = 28% Intake & Output: Intake & Output 05/12/19 05/13/19 05/14/19 05/15/19 11:59 11:59 11:59 11:59 Intake Total 3674 4467 1731 1342 Output Total 3601 3000 3400 2250 Balance 73 1467 -0945 -908 Weight 96.8 kg 96.8 kg - Lab Result Diagrams: 05/13/19 06:10 05/13/19 06:10 Lab Results-Last 24 Hrs: Lab Results-Last 24 Hours 05/14/19 Range/Units 10:10 NT-Pro-B Natriuret Pep 865 (0-900) pg/mL Micro Results-Entire Visit: Microbiology 05/05/19 22:59 Blood Culture Gram Stain - Final Blood Not Reportable Blood Culture - Final NO GROWTH 05/05/19 22:59 Blood Culture Gram Stain - Final Blood Not Reportable Blood Culture - Final NO GROWTH - Procedures and Test Procedures and Tests throughout Hospitalization: Therapy Orders & Screens 05/05/19 22:08 Peak Expiratory Flow Rate ONCE Comment: Reason For Exam: Respiratory Therapy Assessment DAILY Comment: 05/05/19 23:11 Oxygen Nasal Cannula 3 lpm Comment: Respiratory Therapy Consult ROUTINE Comment: Reason For Exam: 05/06/19 01:29 Smoking Cessation Education ONCE Comment: Diagnosis: Pneumonia Smoking Status: Current every day smoker How long have you smoked: 40 years Have you smoked in the past 12 months: Yes Approximately how many cigarettes per day: 20 Do you dip or chew tobacco: No 05/07/19 12:56 Incentive Spirometry TID Comment: Diagnosis: Pneumonia 05/08/19 13:14 Flutter Therapy UD Comment: Diagnosis: Pneumonia Discharge Exam General Appearance: no apparent distress, alert Respiratory Exam: normal breath sounds, prolonged expirations, No chest tenderness Cardiovascular Exam: regular rate/rhythm, normal heart sounds Gastrointestinal/Abdomen Exam: soft, No tenderness, No mass Extremity Exam: normal inspection, normal range of motion Skin Exam: normal color, warm, dry Final Diagnosis/Problem List - Final Discharge Diagnosis/Problem (1) COPD with acute exacerbation Current Visit: Yes Status: Acute Code(s): J44.1 - CHRONIC OBSTRUCTIVE PULMONARY DISEASE W (ACUTE) EXACERBATION (2) Hypoxia Current Visit: Yes Status: Acute Assessment & Plan: qualified for home oxygen. Code(s): R09.02 - HYPOXEMIA - Discharge Disposition: Home, Self-Care Condition: Good Prescriptions: New Ipratropium/Albuterol Sulfate [Combivent Inhaler] 15 gm IH QID #1 aer.w.adap Prednisone 20 mg [Deltasone 20 mg] 20 mg PO UD #18 tablet Alprazolam 0.25 mg [xanAX 0.25 MG] 0.25 mg PO Q6H PRN PRN #20 tablet PRN Reason: Anxiety Continue Levothyroxine Sodium 50 Mcg [Synthroid 50 Mcg] 50 mcg PO DAILY Tramadol HCl 50 mg [Ultram 50 mg] 50 mg PO BID Tizanidine HCl 4 mg PO [id number] PRN PRN Reason: Pain Pregabalin 200 mg PO BID Budesonide/Formoterol Fumarate [Symbicort 80-4.5 Mcg Inhaler] 1 puff IH DAILY PRN PRN Reason: Shortness Of Breath Albuterol Common Canister [Proventil Common Canister] 2 puffs IH UD PRN PRN Reason: Shortness Of Breath Hydrocodone Bit/Acetaminophen [[place] 7.5-325 Tablet] 1 each PO Q6HPRN PRN PRN Reason: Pain Instructions: Quitting Smoking for Older Adults, Exacerbation of COPD (DC), Risk Factors for COPD Follow up with: KHANG JOHNSON [ACTIVE STAFF] - 1 Week (f/u in 1 week of discharge) JUDY AN DO [ACTIVE STAFF] - 05/19/19 1:00 pm
[2019-05-15 08:45] VITALS: PULSE 72; O2SAT 90
[2019-05-15] MEDS: SYNTHROID 50 MCG PO SCH (09:37)
[2019-05-15] MEDS: Paxil 12.5MG CR PO SCH (09:37)
[2019-05-15] MEDS: LYRICA 100MG PO SCH (09:37)
[2019-05-15] MEDS: THEOPHYLLINE ER 24HR PO SCH (09:37)
[2019-05-15] MEDS: Mucinex 600MG ER Tabs PO SCH (09:38)
[2019-05-15] MEDS: ENOXAPARIN SODIUM SQ SCH (09:38)
[2019-05-15] MEDS: Pepcid 20 MG VIAL IV SCH (09:38)
--- NOTE | 2019-05-15 10:22 | PROG NOTE ---
DATE: 05/12/2019 Events noted. HISTORY: The patient reports improvement in shortness of breath. She does get winded with ambulation in the room but cough and wheezing have all improved. Vital signs noted. PHYSICAL EXAMINATION: HEENT: Normocephalic. Oral exam is limited. NECK: Supple. CVS: First and second heart sounds are normal, regular, rhythmic. RESPIRATORY: Shows diminished breath sounds, scattered rhonchi are heard which have significantly improved since admission. ABDOMEN: Soft. EXTREMITIES: No edema is noted. LABORATORY DATA AND TESTS: Labs reviewed. ASSESSMENT: This is a 58 year old woman admitted with: 1) Chronic obstructive pulmonary disease with acute exacerbation. 2) Acute bronchitis resolving. 3) Hypoxemia. 4) Hypothyroidism. 5) Nicotine addiction. RECOMMENDATIONS: The patient is improving from pulmonary standpoint, continue present treatment including ambulation. I will follow up in outpatient setting. Lower extremity venous Doppler's were negative for deep venous thrombosis.
== END 2019-05-15 12:40 | disposition home or self-care (01) | DRG 190 ==
LOC: ED 21:12 → MED SURG 23:07 → OBSVTOIN 05-06 10:00
PROVIDERS: ADMIT Family Medicine; ATTEND Family Medicine
DX: J44.1 Chronic obstructive pulmonary disease with (acute) exacerbation (principal); J18.9 Pneumonia, unspecified organism; D72.829 Elevated white blood cell count, unspecified; R09.02 Hypoxemia; E05.90 Thyrotoxicosis, unspecified without thyrotoxic crisis or storm; F17.200 Nicotine dependence, unspecified, uncomplicated; E83.51 Hypocalcemia; R51 Headache; F41.9 Anxiety disorder, unspecified; R63.5 Abnormal weight gain; Z79.899 Other long term (current) drug therapy
CPT/HCPCS: 36415; 71260; 80048; 80053; 83605; 83880; 84439; 84443; 84484; 85025; 85379; 87040; 93005; 93268; 93970; 94150; 94640; 94667; 94668; 94760; 96372; 99291; G0378; 36000; 94762; 99285; J0456; J0696; J1650; J2920; J2930; L0625; A9270-GY

== ENCOUNTER 2022-04-23 15:49 | Emergency (ER) | payer MEDICARE ==
[2022-04-23 16:48] VITALS: BP 126/59; PULSE 63
[2022-04-23] MEDS ORDERED: TORAdol 30 mg Injection IM ONE (16:51)
[2022-04-23] MEDS ORDERED: TORAdol 30 mg Injection ONE (16:54)
[2022-04-23 16:57] VITALS: O2SAT 98
--- NOTE | 2022-04-23 16:57 | ERPHSYRPT ---
- History of Present Illness Time Seen by Provider: 04/23/22 16:54 Source: patient Exam Limitations: no limitations Patient Subjective Stated Complaint: pt states "I fell on a curb. I tried to walk on my foot but can't put weight on it." Triage Nursing Assessment: pt came into the er via wheelchair; pt is axo x4; c/o left ankle injury; pt states 9/10 pain to left ankle; bruising present to left dorsal foot; swelling present to left ankle; good cap refill to LLE; limited ROM to LLE; vitals wnl; skin PDW Physician History: 61-year-old female presents to emergency department for evaluation of pain to her left ankle. Patient was ambulating and inverted her left ankle. Patient has pain primarily at the lateral aspect of the left ankle. No other injuries reported. No BHT or LOC. No neck pain. Cervical spine cleared clinically. Patient voices no other complaints or concerns this time. Patient's injury was mechanical. It was not associated with any sort of neuro cardiovascular symptomology. No associated chest pain or shortness of breath. Portions of this note were created with voice recognition technology. There may be grammatical, spelling, punctuation or sound alike errors Method of Injury: twisted Occurred: just prior to arrival Quality: constant Severity of Pain-Max: moderate Severity of Pain-Current: mild Lower Extremities Pain: ankle: left Modifying Factors: Improves With: movement Associated Symptoms: none Allergies/Adverse Reactions: levofloxacin [From Levaquin] Allergy (Verified 04/23/22 16:41) morphine Allergy (Verified 04/23/22 16:41) Penicillins Allergy (Verified 04/23/22 16:41) varenicline [From Chantix] Adverse Reaction (Verified 04/23/22 16:41) Home Medications: Albuterol Common Canister [Ventolin Common Canister] 2 puffs IH UD PRN 04/30/19 [History] Budesonide/Formoterol Fumarate [Symbicort 80-4.5 Mcg Inhaler] 1 puff IH DAILY PRN 04/30/19 [History] Levothyroxine Sodium 50 Mcg [Synthroid 50 Mcg] 50 mcg PO DAILY 04/30/19 [History] Pregabalin 200 mg PO BID 04/30/19 [History] Tizanidine HCl 4 mg PO [id number] PRN 04/30/19 [History] Tramadol HCl 50 mg [Ultram 50 mg] 50 mg PO BID 04/30/19 [History] Hydrocodone/Acetaminophen [[place] 7.5-325 Tablet] 1 each PO Q6HPRN PRN 05/05/19 [History] Hx Tetanus, Diphtheria Vaccination/Date Given: Yes Hx Influenza Vaccination/Date Given: No Hx Pneumococcal Vaccination/Date Given: No Immunizations Up to Date: Yes Travel Risk - International Travel Have you traveled outside of the country in past 3 weeks: No - Coronavirus Screening Are you exhibiting any of the following symptoms?: No Close contact with a COVID-19 positive Pt in past 14-21 Days: No - Vaccine Status Have you recieved a Covid-19 vaccination: No - Review of Systems Constitutional: No Symptoms, No Fever, No Chills Eyes: No Symptoms Ears, Nose, & Throat: No Symptoms Respiratory: No Symptoms, No Cough, No Dyspnea Cardiac: No Symptoms, No Chest Pain, No Edema, No Syncope Abdominal/Gastrointestinal: No Symptoms, No Abdominal Pain, No Nausea, No Vomiting, No Diarrhea Genitourinary Symptoms: No Symptoms, No Dysuria Musculoskeletal: No Symptoms, No Back Pain, No Neck Pain Skin: No Symptoms, No Rash Neurological: No Symptoms, No Dizziness, No Focal Weakness, No Sensory Changes Psychological: No Symptoms Endocrine: No Symptoms Hematologic/Lymphatic: No Symptoms Immunological/Allergic: No Symptoms All Other Systems: Reviewed and Negative - Past Medical History Pertinent Past Medical History: Yes Neurological History: Peripheral Neuropathy ENT History: No Pertinent History Cardiac History: No Pertinent History Respiratory History: COPD, Pneumonia Endocrine Medical History: Hypothyroidism Musculoskeletal History: Osteoarthritis GI Medical History: No Pertinent History, Ulcer History: No Pertinent History Psycho-Social History: Depression Female Reproductive Disorders: No Pertinent History Other Medical History: BILATERAL HIP REPLACEMENTS AT AGE 45 (SIX MONTH APART). BACK SURGERY "SCRAPED ARTHRITIS" DUE TO PROBLEMS WITH BOWEL/BLADDER CONTROL APPROXIMATELY 2010 - Past Surgical History Past Surgical History: Yes Neuro Surgical History: No Pertinent History Cardiac: No Pertinent History Respiratory: No Pertinent History Gastrointestinal: No Pertinent History Genitourinary: No Pertinent History Musculoskeletal: Orthopedic Surgery Female Surgical History: No Pertinent History Other Surgical History: BILATERAL HIP REPLACEMENTS AT AGE 45 (SIX MONTH APART). BACK SURGERY "SCRAPED ARTHRITIS" DUE TO PROBLEMS WITH BOWEL/BLADDER CONTROL APPROXIMATELY 2010 - Social History Smoking Status: Current every day smoker How long have you smoked: 40 years Exposure to second hand smoke: Yes Drug Use: marijuana Patient Lives Alone: No - Nursing Vital Signs Nursing Vital Signs: Initial Vital Signs Temperature 99 F 04/23/22 16:41 Pulse Rate 63 04/23/22 16:41 Respiratory Rate 18 04/23/22 16:41 Blood Pressure 126/59 04/23/22 16:41 Pain Scale Pain Intensity 9 - Physical Exam General Appearance: no apparent distress, alert Eyes, Ears, Nose, Throat Exam: moist mucous membranes Neck Exam: non-tender, supple Cardiovascular/Respiratory Exam: chest non-tender, normal breath sounds, regular rate/rhythm, no respiratory distress Gastrointestinal/Abdominal Exam: non-tender, guarding Back Exam: normal inspection, No vertebral tenderness Hips Exam: bilateral: non-tender, normal inspection, normal range of motion, no evidence of injury Legs Exam: bilateral leg: non-tender, normal inspection, normal range of motion, no evidence of injury Knees Exam: bilateral knee: non-tender, normal inspection, normal range of motion, no evidence of injury Ankle Exam: right ankle: non-tender, normal inspection, normal range of motion, no evidence of injury, left ankle: pain, soft tissue tenderness, swelling, other (Left ankle neurovascular intact distally. Compartments are soft. Cap refill less than 2 seconds.) Foot Exam: bilateral foot: non-tender, normal inspection, normal range of motion, no evidence of injury Neuro/Tendon Exam: normal sensation, normal motor functions Mental Status Exam: alert, oriented x 3, cooperative Skin Exam: normal color, warm, dry SpO2 Interpretation: normal SpO2: 98 O2 Delivery: Room Air - Course Nursing assessment & vital signs reviewed: Yes - Radiology Exams Ankle X-ray Interpretation: Teleradiologist Report (Nondisplaced fracture tip medial malleolus.) Ordered Tests: Active Orders 24 hr Category Date Time Status ANKLE (3 VIEWS) Stat Exams 04/23/22 16:50 Completed Medication Summary Discontinued Medications Generic Name Dose Route Start Last Admin Trade Name Freq PRN Reason Stop Dose Admin Ketorolac Tromethamine 30 mg 04/23/22 16:51 04/23/22 16:55 Ketorolac Tromethamine 30 Mg/Ml Inj IM 04/23/22 16:52 30 mg STAT ONE Administration Ketorolac Tromethamine Confirm 04/23/22 16:54 Ketorolac Tromethamine 30 Mg/Ml Inj Administered 04/23/22 16:55 Dose 30 mg .ROUTE .STK-MED ONE - Progress Progress: improved Progress Note: Patient received Toradol for pain control. X-ray shows a nondisplaced fracture of the tip of the medial malleolus. Patient unable to bear weight. Patient provided bilateral axillary crutches. Patient receiving referral to orthopedic clinic. Patient to maintain on weightbearing until her orthopedic evaluation tomorrow. Portions of this note were created with voice recognition technology. There may be grammatical, spelling, punctuation or sound alike errors 04/23/22 17:15 Counseled pt/family regarding: diagnosis, need for follow-up, rad results - Departure Departure Disposition: Home Clinical Impression: Fx medial malleolus-closed, Ankle sprain Condition: Stable Critical Care Time: No Referrals: DAYSI KINSEY MD [Primary Care Provider] - Follow up/PCP as directed Additional Instructions: Discharge/Care Plan LINDY FERRARO was seen on 04/23/22 in the Emergency Room. The patient was counseled regarding Diagnosis,Lab results, Imaging studies, need for follow up and when to return to the Emergency Room. Prescriptions given: Discharge Note I have spoken with the patient and/or caregivers. I have explained the patient's condition, diagnosis and treatment plan based on the information available to me at this time. I have answered the patient's and/or caregiver's questions and a ddressed any concerns. The patient and/or caregivers have as good understanding of the patient's diagnosis, condition and treatment plan as can be expected at this point. The vital signs have been stable. The patient's condition is stable and appropriate for discharge from the emergency department. The patient will pursue further outpatient evaluation with the primary care physician or other designated or consulting physician as outlined in the discharge instructions. The patient and/or caregivers are agreeable to this plan of care and follow-up instructions have been explained in detail. The patient and/or caregivers have received these instruction. The patient/and or caregivers are aware that any significant change in condition or worsening of symptoms should prompt an immediate return to this or the closest emergency department or call 911. Outpatient Orders: Ortho Referral Time Frame: 1 Day, Facility: [facility], Location: ORTHO CLINIC
--- NOTE | 2022-04-23 17:07 | XRAY ---
Indication: Pain following fall. Comparison: None 3 view left ankle demonstrates osteopenia, tiny spurring distal tibia anteriorly, and mild anterior lateral soft tissue swelling. Query nondisplaced fracture tip medial malleolus only seen on oblique view. Remaining ankle unremarkable.
== END 2022-04-23 17:45 | disposition home or self-care (01) ==
LOC: ED 15:49
DX: S82.55XA Nondisplaced fracture of medial malleolus of left tibia, initial encounter for closed fracture (principal); S93.402A Sprain of unspecified ligament of left ankle, initial encounter; X50.0XXA Overexertion from strenuous movement or load, initial encounter; Y93.01 Activity, walking, marching and hiking; M25.572 Pain in left ankle and joints of left foot; J44.9 Chronic obstructive pulmonary disease, unspecified; Z72.0 Tobacco use; Z79.899 Other long term (current) drug therapy; Z28.310 Unvaccinated for COVID-19
CPT/HCPCS: 73610; 96372; 99283; J1885